=== PATIENT | female | born 1970 | race Two or more races ===

== ENCOUNTER 2024-09-25 10:20 | Outpatient (AMB) | payer MEDICAID, SELFPAY ==
[2024-09-25 10:45] VITALS: BP 124/85; PULSE 86; RESP 18; TEMP 36.8; O2SAT 96; BMI 34.7
--- NOTE | 2024-09-25 10:45 | PD.ORTHCLVIS ---
Vital signs 09/25/24 10:45 Height 1.57 m Height Method Stated Weight 85.502 kg Weight Measurement Method Standing Scale BMI 34.7 BP 124/85 H Blood Pressure Source Automatic Cuff Blood Pressure Location Right Upper Arm Position Sitting Respiration 18 Pulse 86 Pulse Source Monitor Temp 98.3 F Temp Source Temporal Artery Scan Pulse Oximetry (%) 96 Oxygen Delivery Method Room Air Med/Allergies Allergies & Medications Allergies NKA* Allergy (Uncoded 09/25/24 10:46) Medication Reconciliation albuterol sulfate 90 mcg/actuation aerosol inhaler (ProAir HFA) 2 puff inhalation Q4HR PRN SHORTNESS OF BREATH OR WHEEZE #1 inh 12/23/17 [Rx Confirmed 09/25/24] amoxicillin 500 mg capsule 500 mg PO TID #30 caps 12/23/17 [Rx Confirmed 09/25/24] cholecalciferol (vitamin D3) 25 mcg (1,000 unit) capsule 25 mcg PO QDAY 09/07/24 [History Confirmed 09/25/24] fexofenadine 180 mg tablet (Allergy Relief (fexofenadine)) 180 mg PO Q24H 09/07/24 [History Confirmed 09/25/24] lancets 23 gauge (Acti-David Lancets) 09/07/24 [History Confirmed 09/25/24] pantoprazole 40 mg tablet,delayed release 40 mg PO QDAY 09/07/24 [History Confirmed 09/25/24] semaglutide 2 mg/dose (8 mg/3 mL) subcutaneous pen injector (Ozempic) 2 mg subcut QWEEK 09/07/24 [History Confirmed 09/25/24] Subjective Visit Visit for: follow up visit, knee (LEFT) and injections Immunization / Flu Flu Vaccine in the Last 12 Months: Yes Flu Vaccine Exclusion Criteria: Already Received History of Present Illness Chief complaint: Bilateral knee pain Patient is a pleasant 54 female with bilateral knee pain with left greater than right. The pain has been ongoing for at least 3 years. She has had over 10 injections. She tried anti-inflammatories. Injections last for about 3 months. The injections are staged as she has diabetes Pain Pain level (0-10): 6 Pain duration: CONSTANT Pain location: inside (medial) and outside (lateral) Pain quality: sharp, dull and aching Pain timing: night and increases with activity Associated signs & symptoms: weakness Ambulatory data Ambulatory device: none Treatments Improvement with previous injections: No Improvement with PT: No Improvement with NSAIDS: no Review of Systems Review of Systems: All systems negative unless otherwise noted in HPI. Exam Exam Patient is in no acute distress and is cooperative with the examination today. Breathing is nonlabored. In no respiratory distress. Bilateral extremities were evaluated and demonstrates sensation intact to light touch. Palpable pedal pulses are present. No significant edema is present. Bilateral hips were examined. The patient has no pain with log roll of the hips. Internal rotation to 30 degrees and external rotation to 30 degrees is painless. Negative FADIR. The left knee was examined. The left knee is in [varus] alignment. Range of motion from [0-115] degrees. Knee is stable to varus and valgus as well as AP translation with <5mm. Patient has a [negative] McMurrays. There is [no] pain with patellofemoral compression and [no] crepitus noted. The knee is [tender] to palpation [medially]. The right knee was also examined. The right knee is in [varus] alignment. Range of motion from [0-120] degrees. Knee is stable to varus and valgus as well as AP translation with <5mm. Patient has a [negative] McMurrays. There is [no] pain with patellofemoral compression and [no] crepitus noted. The knee is [tender] to palpation [medially]. X-rays demonstrate bilateral joint space narrowing medially and varus deformity. Assessment and Plan Problem List (1) Arthritis of both knees: Status: Acute Plan: Patient is a pleasant 54-year-old female with bilateral knee pain and bilateral knee arthritis. SShe would like a right knee injection today We discussed that this is reasonable. We also discussed surgery in great detail. Recommend knee cortisone injection as patient would like to proceed with conservative treatment at this time. The risks and benefits of the procedure were reviewed with the patient and patient gave verbal consent to continue with the procedure. Procedure: performed by Dr. Bhatia Using sterile technique the left knee was thoroughly prepped with alcohol, and approximately 1 cc of Kenalog 40 mg/mL and 4 cc of 1% lidocaine was injected without resistance into the medial tibial femoral joint space. The patient tolerated the procedure. Office Procedures GNS Level of Care Nursing/Assessment Patient Status: Established Patient Nursing Assessment/Reassesment: Medication Reconciliation, Update PMH in EMR and Vital Signs Coordination of Care: Complex Care and Chronic Disease 1-5, Education Complex Pt/Fam, Consent,records obtained, informed consent, 1 Ins Authorization, Results/Orders obtained and Staff clarify orders Special Needs: Language special needs Established Patient Charge Established Patient Point Assignment: 110 Established Patient Point Charge: EP Level 3 (80-115) Surgical Proc/IM SQ injection Major Surgical Procedure: Yes (LEFT KNEE INJECTION) Past Medical History Past Medical History Have you ever been diagnosed with any of the following: Respiratory Problems Smoking: No Smoking Exposure: No Endocrine Problems Diabetes Mellitus Type 1: Yes
== END 2024-09-25 11:01 | disposition home or self-care (01) ==
LOC: HODSRG 10:20
PROVIDERS: PCP Physician Assistant Medical; Referring Provider Physician Assistant Medical; Supervising Provider Orthopaedic Surgery Adult Reconstructive Orthopaedic Surgery; Visit Provider Orthopaedic Surgery Adult Reconstructive Orthopaedic Surgery
DX: M17.0 Bilateral primary osteoarthritis of knee (principal); M25.562 Pain in left knee; M25.561 Pain in right knee; E11.9 Type 2 diabetes mellitus without complications
CPT/HCPCS: 20610; 99213; J3301; J3490; G0463

== ENCOUNTER 2024-12-14 09:14 | Outpatient (AMB) | payer MEDICAID, SELFPAY ==
--- NOTE | 2024-12-14 09:58 | PD.ORTHCLVIS ---
Vital signs 12/14/24 10:00 Height 1.57 m Height Method Stated Weight 88.11 kg Weight Measurement Method Standing Scale BMI 35.7 BP 113/77 Blood Pressure Source Automatic Cuff Blood Pressure Location Left Upper Arm Position Sitting Respiration 18 Pulse 91 Pulse Source Monitor Temp 97.3 F Temp Source Temporal Artery Scan Pulse Oximetry (%) 97 Oxygen Delivery Method Room Air Med/Allergies Allergies & Medications Allergies NKA* Allergy (Uncoded 12/14/24 10:00) Medication Reconciliation albuterol sulfate 90 mcg/actuation aerosol inhaler (ProAir HFA) 2 puff inhalation Q4HR PRN SHORTNESS OF BREATH OR WHEEZE #1 inh 12/23/17 [Rx Confirmed 12/14/24] amoxicillin 500 mg capsule 500 mg PO TID #30 caps 12/23/17 [Rx Confirmed 12/14/24] cholecalciferol (vitamin D3) 25 mcg (1,000 unit) capsule 25 mcg PO QDAY 09/07/24 [History Confirmed 12/14/24] fexofenadine 180 mg tablet (Allergy Relief (fexofenadine)) 180 mg PO Q24H 09/07/24 [History Confirmed 12/14/24] lancets 23 gauge (Acti-David Lancets) 09/07/24 [History Confirmed 12/14/24] pantoprazole 40 mg tablet,delayed release 40 mg PO QDAY 09/07/24 [History Confirmed 12/14/24] semaglutide 2 mg/dose (8 mg/3 mL) subcutaneous pen injector (Ozempic) 2 mg subcut QWEEK 09/07/24 [History Confirmed 12/14/24] Exam Exam Patient is in no acute distress and is cooperative with the examination today. Breathing is nonlabored. In no respiratory distress. Bilateral extremities were evaluated and demonstrates sensation intact to light touch. Palpable pedal pulses are present. No significant edema is present. Bilateral hips were examined. The patient has no pain with log roll of the hips. Internal rotation to 30 degrees and external rotation to 30 degrees is painless. Negative FADIR. The left knee was examined. The left knee is in [varus] alignment. Range of motion from [0-115] degrees. Knee is stable to varus and valgus as well as AP translation with <5mm. Patient has a [negative] McMurrays. There is [no] pain with patellofemoral compression and [no] crepitus noted. The knee is [tender] to palpation [medially]. The right knee was also examined. The right knee is in [varus] alignment. Range of motion from [0-120] degrees. Knee is stable to varus and valgus as well as AP translation with <5mm. Patient has a [negative] McMurrays. There is [no] pain with patellofemoral compression and [no] crepitus noted. The knee is [tender] to palpation [medially]. X-rays demonstrate bilateral joint space narrowing medially and varus deformity. Assessment and Plan Problem List (1) Arthritis of both knees: Status: Acute Plan: Patient is a pleasant 54-year-old female with bilateral knee pain and bilateral knee arthritis. She would like a right knee injection today We discussed that this is reasonable. We also discussed surgery in great detail. Recommend knee cortisone injection as patient would like to proceed with conservative treatment at this time. The risks and benefits of the procedure were reviewed with the patient and patient gave verbal consent to continue with the procedure. Procedure: performed by Dr. Bhatia Using sterile technique the Right knee was thoroughly prepped with alcohol, and approximately 1 cc of Kenalog 40 mg/mL and 4 cc of 1% lidocaine was injected without resistance into the medial tibial femoral joint space. The patient tolerated the procedure. Office Procedures GNS Level of Care Nursing/Assessment Patient Status: Established Patient Nursing Assessment/Reassesment: Medication Reconciliation, Update PMH in EMR and Vital Signs Coordination of Care: Complex Care and Chronic Disease 1-5, Education Complex Pt/Fam, Consent,records obtained, informed consent, Results/Orders obtained and Staff clarify orders Special Needs: Language special needs Established Patient Charge Established Patient Point Assignment: 95 Established Patient Point Charge: EP Level 3 (80-115) Surgical Proc/IM SQ injection Major Surgical Procedure: Yes (RIGHT KNEE INJECTION) Medication Given Medication Given Medication Given: Yes Documented Dose Given: 4 Route: Infiitration Medication Given Medication Given Medication Given: Yes Documented Dose Given: 1 Route: Infiitration Office Meds Xylocaine 10 mg/mL (1 %) injection solution Performing Provider: Aj Bhatia MD Performing Location: [facility] Administered by: Aj Bhatia MD on 12/14/24 10:27 Dose Route Admin Location Dispensed Lot Number Expiration Date [facility] Asset Protection Agent 20 mL Infiltration 20 mL [id number] 07/27/27 87414-888-89 [facility] triamcinolone acetonide 40 mg/mL suspension for injection Performing Provider: Aj Bhatia MD Performing Location: [facility] Administered by: Aj Bhatia MD on 12/14/24 10:27 Dose Route Admin Location Dispensed Lot Number Expiration Date [facility] Asset Protection Agent 40 mg Infiltration KNEE 1 mL [id number] 04/26/26 [id number] [employer] [facility] [place] Intake Visit Data Collection New Patient or Established: Established Patient (seen at [facility] within 3 years) Reason for Visit:: RIGHT KNEE INJECTION Seen by Clinical Staff ONLY (RN/MA): No Baggage Inspector Required: Yes PCP or OBGYN visit in last 3 months: Yes Hx Now: No Do You Feel Safe at Home: Yes Authorities Contacted: N/A Questionairres Past Medical History Past Medical History Have you ever been diagnosed with any of the following: Respiratory Problems Smoking: No Smoking Exposure: No Endocrine Problems Diabetes Mellitus Type 1: Yes Subjective Visit Visit for: follow up visit, knee and injections Immunization / Flu Flu Vaccine in the Last 12 Months: No Flu Vaccine Exclusion Criteria: No Exclusion Criteria History of Present Illness Chief complaint: Right knee pain Patient is a 54-year-old female whose been doing well with the injections. We will give her an injection today. We are alternating injections as she has diabetes Pain Pain level (0-10): 10 Pain duration: ALL DAY Pain location: inside (medial), outside (lateral), anterior and posterior Pain quality: sharp Pain timing: increases with activity and stairs Associated signs & symptoms: weakness Ambulatory data Ambulatory device: none Treatments Improvement with previous injections: No Improvement with PT: No Improvement with NSAIDS: no Review of Systems Review of Systems: All systems negative unless otherwise noted in HPI.
[2024-12-14 10:00] VITALS: BP 113/77; PULSE 91; RESP 18; TEMP 36.3; O2SAT 97; BMI 35.7
== END 2024-12-14 10:24 | disposition home or self-care (01) ==
PROVIDERS: PCP Physician Assistant Medical; Referring Provider Physician Assistant Medical; Supervising Provider Orthopaedic Surgery Adult Reconstructive Orthopaedic Surgery; Visit Provider Orthopaedic Surgery Adult Reconstructive Orthopaedic Surgery
DX: M17.0 Bilateral primary osteoarthritis of knee (principal); M25.562 Pain in left knee; M25.561 Pain in right knee; E11.9 Type 2 diabetes mellitus without complications
CPT/HCPCS: 20610; 99213; J3301; J3490; G0463

== ENCOUNTER 2024-12-25 10:05 | Outpatient (AMB) | payer MEDICAID, SELFPAY ==
[2024-12-25 10:24] VITALS: BP 138/80; PULSE 98; RESP 18; TEMP 36.3; O2SAT 98; BMI 35.4
--- NOTE | 2024-12-25 10:24 | PD.ORTHCLVIS ---
Vital signs 12/25/24 10:24 Height 1.57 m Height Method Stated Weight 87.175 kg Weight Measurement Method Standing Scale BMI 35.4 BP 138/80 H Blood Pressure Source Automatic Cuff Blood Pressure Location Right Upper Arm Position Sitting Respiration 18 Pulse 98 Pulse Source Monitor Temp 97.3 F Temp Source Temporal Artery Scan Pulse Oximetry (%) 98 Oxygen Delivery Method Room Air Med/Allergies Allergies & Medications Allergies NKA* Allergy (Uncoded 12/25/24 10:26) Medication Reconciliation albuterol sulfate 90 mcg/actuation aerosol inhaler (ProAir HFA) 2 puff inhalation Q4HR PRN SHORTNESS OF BREATH OR WHEEZE #1 inh 12/23/17 [Rx Confirmed 12/25/24] amoxicillin 500 mg capsule 500 mg PO TID #30 caps 12/23/17 [Rx Confirmed 12/25/24] cholecalciferol (vitamin D3) 25 mcg (1,000 unit) capsule 25 mcg PO QDAY 09/07/24 [History Confirmed 12/25/24] fexofenadine 180 mg tablet (Allergy Relief (fexofenadine)) 180 mg PO Q24H 09/07/24 [History Confirmed 12/25/24] lancets 23 gauge (Acti-David Lancets) 09/07/24 [History Confirmed 12/25/24] pantoprazole 40 mg tablet,delayed release 40 mg PO QDAY 09/07/24 [History Confirmed 12/25/24] semaglutide 2 mg/dose (8 mg/3 mL) subcutaneous pen injector (Ozempic) 2 mg subcut QWEEK 09/07/24 [History Confirmed 12/25/24] Exam Exam Patient is in no acute distress and is cooperative with the examination today. Breathing is nonlabored. In no respiratory distress. Bilateral extremities were evaluated and demonstrates sensation intact to light touch. Palpable pedal pulses are present. No significant edema is present. Bilateral hips were examined. The patient has no pain with log roll of the hips. Internal rotation to 30 degrees and external rotation to 30 degrees is painless. Negative FADIR. The left knee was examined. The left knee is in [varus] alignment. Range of motion from [0-115] degrees. Knee is stable to varus and valgus as well as AP translation with <5mm. Patient has a [negative] McMurrays. There is [no] pain with patellofemoral compression and [no] crepitus noted. The knee is [tender] to palpation [medially]. The right knee was also examined. The right knee is in [varus] alignment. Range of motion from [0-120] degrees. Knee is stable to varus and valgus as well as AP translation with <5mm. Patient has a [negative] McMurrays. There is [no] pain with patellofemoral compression and [no] crepitus noted. The knee is [tender] to palpation [medially]. X-rays demonstrate bilateral joint space narrowing medially and varus deformity. Assessment and Plan Problem List (1) Arthritis of both knees: Status: Acute Plan: Patient is a pleasant 54-year-old female with bilateral knee pain and bilateral knee arthritis. She would like a left knee injection today We discussed that this is reasonable. We also discussed surgery in great detail. Recommend knee cortisone injection as patient would like to proceed with conservative treatment at this time. The risks and benefits of the procedure were reviewed with the patient and patient gave verbal consent to continue with the procedure. Procedure: performed by Dr. Bhatia Using sterile technique the left knee was thoroughly prepped with alcohol, and approximately 1 cc of Kenalog 40 mg/mL and 4 cc of 1% lidocaine was injected without resistance into the medial tibial femoral joint space. The patient tolerated the procedure. Office Procedures GNS Level of Care Nursing/Assessment Patient Status: Established Patient Nursing Assessment/Reassesment: Medication Reconciliation, Update PMH in EMR and Vital Signs Coordination of Care: Complex Care and Chronic Disease 1-5, Education Complex Pt/Fam, Consent,records obtained, informed consent, Results/Orders obtained and Staff clarify orders Special Needs: Language special needs Established Patient Charge Established Patient Point Assignment: 95 Established Patient Point Charge: EP Level 3 (80-115) Surgical Proc/IM SQ injection Major Surgical Procedure: Yes (KNEE INJECTION) Medication Given Medication Given Medication Given: Yes Documented Dose Given: 4 Route: Infiitration Medication Given Medication Given Medication Given: Yes Documented Dose Given: 1 Route: Infiitration Office Meds Xylocaine 10 mg/mL (1 %) injection solution Performing Provider: Aj Bhatia MD Performing Location: [facility] Administered by: Aj Bhatia MD on 12/25/24 10:52 Dose Route Admin Location Dispensed Lot Number Expiration Date [facility] Orthopedic Shoe Fitter 20 mL Infiltration 20 mL [id number] 03/27/28 99580-047-25 [facility] triamcinolone acetonide 40 mg/mL suspension for injection Performing Provider: Aj Bhatia MD Performing Location: [facility] Administered by: Aj Bhatia MD on 12/25/24 10:52 Dose Route Admin Location Dispensed Lot Number Expiration Date [facility] Orthopedic Shoe Fitter 40 mg Infiltration KNEE 1 mL [id number] 04/26/26 [id number] TEV[facility] PARENTERAL [place] Intake Visit Data Collection New Patient or Established: Established Patient (seen at [facility] within 3 years) Reason for Visit:: KNEE INJECTION Seen by Clinical Staff ONLY (RN/MA): No Verbal consent obtained for Telemed visit?: No Filing Writer Required: Yes PCP or OBGYN visit in last 3 months: Yes Hx Now: No Do You Feel Safe at Home: Yes Authorities Contacted: N/A Questionairres Past Medical History Past Medical History Have you ever been diagnosed with any of the following: Respiratory Problems Smoking: No Smoking Exposure: No Endocrine Problems Diabetes Mellitus Type 1: Yes Subjective Visit Visit for: follow up visit, knee and injections Immunization / Flu Flu Vaccine in the Last 12 Months: No Flu Vaccine Exclusion Criteria: No Exclusion Criteria History of Present Illness Chief complaint: KNEE INJECTION Patient is a 54-year-old female whose been doing well with the injections. We will give her an injection today. We are alternating injections as she has diabetes. She did well with the right knee injection and is here for the left today Pain Pain level (0-10): 4 Pain duration: ALL DAY Pain location: inside (medial), outside (lateral), anterior and posterior Pain quality: sharp, dull and aching Pain timing: increases with activity Associated signs & symptoms: weakness Ambulatory data Ambulatory device: none Treatments Improvement with previous injections: No Improvement with PT: No Improvement with NSAIDS: no Review of Systems Review of Systems: All systems negative unless otherwise noted in HPI.
== END 2024-12-25 10:54 | disposition home or self-care (01) ==
LOC: HODSRG 10:05
PROVIDERS: PCP Physician Assistant Medical; Referring Provider Physician Assistant Medical; Supervising Provider Orthopaedic Surgery Adult Reconstructive Orthopaedic Surgery; Visit Provider Orthopaedic Surgery Adult Reconstructive Orthopaedic Surgery
DX: M17.0 Bilateral primary osteoarthritis of knee (principal); M25.562 Pain in left knee; M25.561 Pain in right knee; E10.9 Type 1 diabetes mellitus without complications
CPT/HCPCS: 20610; 99213; J3301; J3490; G0463

== ENCOUNTER 2025-03-14 10:43 | Outpatient (AMB) | payer MEDICAID, SELFPAY ==
--- NOTE | 2025-03-14 10:56 | ORTHONT_ITS ---
Vital signs 03/14/25 10:57 Height 1.57 m Height Method Stated Weight 87.288 kg Weight Measurement Method Standing Scale BMI 35.4 BP 126/84 Blood Pressure Source Automatic Cuff Blood Pressure Location Right Upper Arm Position Sitting Respiration 17 Pulse 98 Pulse Source Monitor Temp 98.4 F Temp Source Temporal Artery Scan Pulse Oximetry (%) 98 Oxygen Delivery Method Room Air Med/Allergies Allergies & Medications Allergies NKA* Allergy (Uncoded 03/14/25 10:58) Medication Reconciliation albuterol sulfate 90 mcg/actuation aerosol inhaler (ProAir HFA) 2 puff inhalation Q4HR PRN SHORTNESS OF BREATH OR WHEEZE #1 inh 12/23/17 [Rx Confirmed 03/14/25] amoxicillin 500 mg capsule 500 mg PO TID #30 caps 12/23/17 [Rx Confirmed 03/14/25] cholecalciferol (vitamin D3) 25 mcg (1,000 unit) capsule 25 mcg PO QDAY 09/07/24 [History Confirmed 03/14/25] fexofenadine 180 mg tablet (Allergy Relief (fexofenadine)) 180 mg PO Q24H 09/07/24 [History Confirmed 03/14/25] lancets 23 gauge (Acti-David Lancets) 09/07/24 [History Confirmed 03/14/25] pantoprazole 40 mg tablet,delayed release 40 mg PO QDAY 09/07/24 [History Confirmed 03/14/25] semaglutide 2 mg/dose (8 mg/3 mL) subcutaneous pen injector (Ozempic) 2 mg subcut QWEEK 09/07/24 [History Confirmed 03/14/25] Exam Exam Patient is in no acute distress and is cooperative with the examination today. Breathing is nonlabored. In no respiratory distress. Bilateral extremities were evaluated and demonstrates sensation intact to light touch. Palpable pedal pulses are present. No significant edema is present. Bilateral hips were examined. The patient has no pain with log roll of the hips. Internal rotation to 30 degrees and external rotation to 30 degrees is painless. Negative FADIR. The left knee was examined. The left knee is in [varus] alignment. Range of motion from [0-115] degrees. Knee is stable to varus and valgus as well as AP translation with <5mm. Patient has a [negative] McMurrays. There is [no] pain with patellofemoral compression and [no] crepitus noted. The knee is [tender] to palpation [medially]. The right knee was also examined. The right knee is in [varus] alignment. Range of motion from [0-120] degrees. Knee is stable to varus and valgus as well as AP translation with <5mm. Patient has a [negative] McMurrays. There is [no] pain with patellofemoral compression and [no] crepitus noted. The knee is [tender] to palpation [medially]. X-rays demonstrate bilateral joint space narrowing medially and varus deformity. Assessment and Plan Problem List (1) Arthritis of both knees: Status: Acute Plan: Patient is a pleasant 54-year-old female with bilateral knee pain and bilateral knee arthritis. She would like a right knee injection today as it has been working for over 3 months Recommend knee cortisone injection as patient would like to proceed with conservative treatment at this time. The risks and benefits of the procedure were reviewed with the patient and patient gave verbal consent to continue with the procedure. Procedure: performed by Dr. Bhatia Using sterile technique the Right knee was thoroughly prepped with alcohol, and approximately 1 cc of Kenalog 40 mg/mL and 4 cc of 1% lidocaine was injected without resistance into the medial tibial femoral joint space. The patient tolerated the procedure. Office Procedures GNS Level of Care Nursing/Assessment Patient Status: Established Patient Nursing Assessment/Reassesment: Medication Reconciliation, Update PMH in EMR and Vital Signs Coordination of Care: Complex Care and Chronic Disease 1-5, Education Complex Pt/Fam, Consent,records obtained, informed consent, Results/Orders obtained and Staff clarify orders Special Needs: Language special needs (ALBANIAN ) Established Patient Charge Established Patient Point Assignment: 95 Established Patient Point Charge: EP Level 3 (80-115) Surgical Proc/IM SQ injection Major Surgical Procedure: Yes (KNEE INJECTION) Medication Given Medication Given Medication Given: Yes Documented Dose Given: 4 Route: Infiitration Medication Given Medication Given Medication Given: Yes Documented Dose Given: 1 Route: Infiitration Office Meds Xylocaine 10 mg/mL (1 %) injection solution Performing Provider: Aj Bhatia MD Performing Location: [facility] Administered by: Aj Bhatia MD on 03/14/25 12:07 Dose Route Admin Location Dispensed Lot Number Expiration Date [facility] Nursing Home Manager 20 mL Infiltration 20 mL [id number] 05/27/28 17314-555-13 SOU[employer]ICIA triamcinolone acetonide 40 mg/mL suspension for injection Performing Provider: Aj Bhatia MD Performing Location: [facility] Administered by: Aj Bhatia MD on 03/14/25 12:07 Dose Route Admin Location Dispensed Lot Number Expiration Date [facility] Nursing Home Manager 40 mg intra-articular KNEE 1 mL [id number] 09/26/26 2843-6294-25 [employer] [place] PARENTERAL MA Intake Visit Data Collection New Patient or Established: Established Patient (seen at [facility] within 3 years) Reason for Visit:: RT KNEE INJECTION Seen by Clinical Staff ONLY (RN/MA): No 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 PCP or OBGYN visit in last 3 months: Yes Hx Now: No Do You Feel Safe at Home: Yes Authorities Contacted: N/A Questionairres Past Medical History Past Medical History Have you ever been diagnosed with any of the following: Respiratory Problems Smoking: No Smoking Exposure: No Endocrine Problems Diabetes Mellitus Type 1: Yes Subjective Visit Visit for: follow up visit and knee (RIGHT KNEE ) Immunization / Flu Flu Vaccine in the Last 12 Months: Yes Flu Vaccine Exclusion Criteria: Already Received History of Present Illness Chief complaint: KNEE INJECTION Patient is a 54-year-old female whose been doing well with the injections. We will give her an injection today. We are alternating injections as she has diabetes. She did well with the right knee injection and is here for the Right knee injection today. They are waiting for over 3 months. We are staggering the injections because of her diabetes Personal History Red flag PMH: none Pain Pain level (0-10): 9 Pain duration: 1 WEEK Pain location: anterior Pain quality: aching and tingling Pain timing: increases with activity Associated signs & symptoms: numbness Ambulatory data Ambulatory device: none Walking distance (minutes): 1 (HOUR) Treatments Number of previous injections: 1 Improvement with previous injections: Yes Number of Physical Therapy sessions: 0 Improvement with PT: No Improvement with NSAIDS: n/a Review of Systems Review of Systems: All systems negative unless otherwise noted in HPI.
[2025-03-14 10:57] VITALS: BP 126/84; PULSE 98; RESP 17; TEMP 36.9; O2SAT 98; BMI 35.4
== END 2025-03-14 11:23 | disposition home or self-care (01) ==
LOC: HODSRG 10:43
PROVIDERS: PCP Physician Assistant Medical; Referring Provider Physician Assistant Medical; Supervising Provider Orthopaedic Surgery Adult Reconstructive Orthopaedic Surgery; Visit Provider Orthopaedic Surgery Adult Reconstructive Orthopaedic Surgery
DX: M17.0 Bilateral primary osteoarthritis of knee (principal); M25.562 Pain in left knee; M25.561 Pain in right knee; E10.9 Type 1 diabetes mellitus without complications
CPT/HCPCS: 20610; 99213; J3301; J3490; G0463

== ENCOUNTER 2025-04-11 11:22 | Outpatient (AMB) | payer MEDICAID, SELFPAY ==
--- NOTE | 2025-04-11 11:26 | PD.ORTHCLVIS ---
Vital signs 04/11/25 11:30 Height 1.57 m Height Method Stated Weight 87.203 kg Weight Measurement Method Standing Scale BMI 35.4 BP 127/83 Blood Pressure Source Automatic Cuff Blood Pressure Location Right Upper Arm Position Sitting Respiration 17 Pulse 99 Pulse Source Monitor Temp 98.4 F Temp Source Temporal Artery Scan Pulse Oximetry (%) 97 Oxygen Delivery Method Room Air Med/Allergies Allergies & Medications Allergies NKA* Allergy (Uncoded 04/11/25 11:32) Medication Reconciliation albuterol sulfate 90 mcg/actuation aerosol inhaler (ProAir HFA) 2 puff inhalation Q4HR PRN SHORTNESS OF BREATH OR WHEEZE #1 inh 12/23/17 [Rx Confirmed 04/11/25] amoxicillin 500 mg capsule 500 mg PO TID #30 caps 12/23/17 [Rx Confirmed 04/11/25] cholecalciferol (vitamin D3) 25 mcg (1,000 unit) capsule 25 mcg PO QDAY 09/07/24 [History Confirmed 04/11/25] fexofenadine 180 mg tablet (Allergy Relief (fexofenadine)) 180 mg PO Q24H 09/07/24 [History Confirmed 04/11/25] lancets 23 gauge (Acti-David Lancets) 09/07/24 [History Confirmed 04/11/25] pantoprazole 40 mg tablet,delayed release 40 mg PO QDAY 09/07/24 [History Confirmed 04/11/25] semaglutide 2 mg/dose (8 mg/3 mL) subcutaneous pen injector (Ozempic) 2 mg subcut QWEEK 09/07/24 [History Confirmed 04/11/25] Exam Exam Patient is in no acute distress and is cooperative with the examination today. Breathing is nonlabored. In no respiratory distress. Bilateral extremities were evaluated and demonstrates sensation intact to light touch. Palpable pedal pulses are present. No significant edema is present. Bilateral hips were examined. The patient has no pain with log roll of the hips. Internal rotation to 30 degrees and external rotation to 30 degrees is painless. Negative FADIR. The left knee was examined. The left knee is in [varus] alignment. Range of motion from [0-115] degrees. Knee is stable to varus and valgus as well as AP translation with <5mm. Patient has a [negative] McMurrays. There is [no] pain with patellofemoral compression and [no] crepitus noted. The knee is [tender] to palpation [medially]. The right knee was also examined. The right knee is in [varus] alignment. Range of motion from [0-120] degrees. Knee is stable to varus and valgus as well as AP translation with <5mm. Patient has a [negative] McMurrays. There is [no] pain with patellofemoral compression and [no] crepitus noted. The knee is [tender] to palpation [medially]. X-rays demonstrate bilateral joint space narrowing medially and varus deformity. Assessment and Plan Problem List (1) Arthritis of both knees: Status: Acute Plan: Patient is a pleasant 54-year-old female with bilateral knee pain and bilateral knee arthritis. She would like a left knee injection today as it has been over 3 months and the last one has worn off Recommend knee cortisone injection as patient would like to proceed with conservative treatment at this time. The risks and benefits of the procedure were reviewed with the patient and patient gave verbal consent to continue with the procedure. Procedure: performed by Dr. Bhatia Using sterile technique the left knee was thoroughly prepped with alcohol, and approximately 1 cc of Kenalog 40 mg/mL and 4 cc of 1% lidocaine was injected without resistance into the medial tibial femoral joint space. The patient tolerated the procedure. Office Procedures GNS Level of Care Nursing/Assessment Patient Status: Established Patient Nursing Assessment/Reassesment: Medication Reconciliation, Update PMH in EMR and Vital Signs Coordination of Care: Complex Care and Chronic Disease 1-5, Education Complex Pt/Fam, Consent,records obtained, informed consent, Results/Orders obtained and Staff clarify orders Special Needs: Language special needs Established Patient Charge Established Patient Point Assignment: 95 Established Patient Point Charge: EP Level 3 (80-115) Surgical Proc/IM SQ injection Major Surgical Procedure: Yes (KNEE INJECTION) Medication Given Medication Given Medication Given: Yes Documented Dose Given: 4 Route: Infiitration Medication Given Medication Given Medication Given: Yes Documented Dose Given: 1 Route: Infiitration Office Meds Xylocaine 10 mg/mL (1 %) injection solution Performing Provider: Aj Bhatia MD Performing Location: [facility] Administered by: Aj Bhatia MD on 04/11/25 11:32 Dose Route Admin Location Dispensed Lot Number Expiration Date [employer] 20 mL Infiltration 20 mL [id number] 07/27/28 53678-516-26 [employer] triamcinolone acetonide 40 mg/mL suspension for injection Performing Provider: Aj Bhatia MD Performing Location: [facility] Administered by: Aj Bhatia MD on 04/11/25 11:32 Dose Route Admin Location Dispensed Lot Number Expiration Date [facility] [employer] Teacher 40 mg intra-articular KNEE 1 mL [id number] 11/26/26 4619-6994-96 [employer]EV[employer] PARENTERAL MA Intake Visit Data Collection New Patient or Established: Established Patient (seen at [facility] within 3 years) Reason for Visit:: 3 MNTH FU/ LT KNEE INJECTION Seen by Clinical Staff ONLY (RN/MA): No 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: 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 PCP or OBGYN visit in last 3 months: Yes Hx Now: No Do You Feel Safe at Home: Yes Authorities Contacted: N/A Questionairres Past Medical History Past Medical History Have you ever been diagnosed with any of the following: Respiratory Problems Smoking: No Smoking Exposure: No Endocrine Problems Diabetes Mellitus Type 1: Yes Subjective Visit Visit for: follow up visit and knee (RIGHT KNEE ) Immunization / Flu Flu Vaccine in the Last 12 Months: Yes Flu Vaccine Exclusion Criteria: Already Received History of Present Illness Chief complaint: KNEE INJECTION Patient is a 54-year-old female whose been doing well with the injections. We will give her an injection today. We are alternating injections as she has diabetes. She did well with the Prior left knee injection 3 months ago and would like another 1 today. We are staggering the injection as she does have diabetes. She would like to get surgery in a year or so Personal History Red flag PMH: none Pain Pain level (0-10): 9 Pain duration: 1 WEEK Pain location: anterior Pain quality: aching and tingling Pain timing: increases with activity Associated signs & symptoms: numbness Ambulatory data Ambulatory device: none Walking distance (minutes): 1 (HOUR) Treatments Number of previous injections: 1 Improvement with previous injections: Yes Number of Physical Therapy sessions: 0 Improvement with PT: No Improvement with NSAIDS: n/a Review of Systems Review of Systems: All systems negative unless otherwise noted in HPI.
[2025-04-11 11:30] VITALS: BP 127/83; PULSE 99; RESP 17; TEMP 36.9; O2SAT 97; BMI 35.4
== END 2025-04-11 11:34 | disposition home or self-care (01) ==
LOC: HODSRG 11:22
PROVIDERS: PCP Physician Assistant Medical; Referring Provider Physician Assistant Medical; Supervising Provider Orthopaedic Surgery Adult Reconstructive Orthopaedic Surgery; Visit Provider Orthopaedic Surgery Adult Reconstructive Orthopaedic Surgery
DX: M17.0 Bilateral primary osteoarthritis of knee (principal); M25.562 Pain in left knee; M25.561 Pain in right knee; E10.9 Type 1 diabetes mellitus without complications
CPT/HCPCS: 20610; 99213; J3301; J3490; G0463

== ENCOUNTER 2025-06-21 09:49 | Outpatient (AMB) | payer MEDICAID, SELFPAY ==
--- NOTE | 2025-06-21 10:10 | ORTHONT_ITS ---
Vital signs 06/21/25 10:16 Height 1.57 m Height Method Measured Weight 90.265 kg Weight Measurement Method Standing Scale BMI 36.6 BP 119/79 Blood Pressure Source Automatic Cuff Blood Pressure Location Left Upper Arm Position Sitting Respiration 16 Pulse 97 Pulse Source Monitor Temp 98.3 F Temp Source Temporal Artery Scan Pulse Oximetry (%) 96 Oxygen Delivery Method Room Air Med/Allergies Allergies & Medications Allergies NKA* Allergy (Uncoded 06/21/25 10:17) Medication Reconciliation albuterol sulfate 90 mcg/actuation aerosol inhaler (ProAir HFA) 2 puff inhalation Q4HR PRN SHORTNESS OF BREATH OR WHEEZE #1 inh 12/23/17 [Rx Confirmed 06/21/25] amoxicillin 500 mg capsule 500 mg PO TID #30 caps 12/23/17 [Rx Confirmed 06/21/25] cholecalciferol (vitamin D3) 25 mcg (1,000 unit) capsule 25 mcg PO QDAY 09/07/24 [History Confirmed 06/21/25] fexofenadine 180 mg tablet (Allergy Relief (fexofenadine)) 180 mg PO Q24H 09/07/24 [History Confirmed 06/21/25] lancets 23 gauge (Acti-David Lancets) 09/07/24 [History Confirmed 06/21/25] pantoprazole 40 mg tablet,delayed release 40 mg PO QDAY 09/07/24 [History Confirmed 06/21/25] semaglutide 2 mg/dose (8 mg/3 mL) subcutaneous pen injector (Ozempic) 2 mg subcut QWEEK 09/07/24 [History Confirmed 06/21/25] Exam Exam Patient is in no acute distress and is cooperative with the examination today. Breathing is nonlabored. In no respiratory distress. Bilateral extremities were evaluated and demonstrates sensation intact to light touch. Palpable pedal pulses are present. No significant edema is present. Bilateral hips were examined. The patient has no pain with log roll of the hips. Internal rotation to 30 degrees and external rotation to 30 degrees is painless. Negative FADIR. The left knee was examined. The left knee is in [varus] alignment. Range of motion from [0-115] degrees. Knee is stable to varus and valgus as well as AP translation with <5mm. Patient has a [negative] McMurrays. There is [no] pain with patellofemoral compression and [no] crepitus noted. The knee is [tender] to palpation [medially]. The right knee was also examined. The right knee is in [varus] alignment. Range of motion from [0-120] degrees. Knee is stable to varus and valgus as well as AP translation with <5mm. Patient has a [negative] McMurrays. There is [no] pain with patellofemoral compression and [no] crepitus noted. The knee is [tender] to palpation [medially]. X-rays demonstrate bilateral joint space narrowing medially and varus deformity. Assessment and Plan Problem List (1) Arthritis of both knees: Status: Acute Plan: Patient is a pleasant 54-year-old female with bilateral knee pain and bilateral knee arthritis. She would like a left knee injection today as it has been over 3 months and the last one has worn off Recommend knee cortisone injection as patient would like to proceed with conservative treatment at this time. The risks and benefits of the procedure were reviewed with the patient and patient gave verbal consent to continue with the procedure. Procedure: performed by Dr. Bhatia Using sterile technique the Right knee was thoroughly prepped with alcohol, and approximately 1 cc of Depo-Medrol 80mg/mL and 4 cc of 0.2% ropivacaine was injected without resistance into the medial tibial femoral joint space. The patient tolerated the procedure. Office Procedures GNS Level of Care Nursing/Assessment Patient Status: Established Patient Nursing Assessment/Reassesment: Medication Reconciliation, Update PMH in EMR and Vital Signs Coordination of Care: Complex Care and Chronic Disease 1-5, Education Complex Pt/Fam, Consent,records obtained, informed consent, Results/Orders obtained and Staff clarify orders Special Needs: Language special needs Established Patient Charge Established Patient Point Assignment: 95 Established Patient Point Charge: EP Level 3 (80-115) Surgical Proc/IM SQ injection Major Surgical Procedure: Yes (KNEE INJECTION) Medication Given Medication Given Medication Given: Yes Documented Dose Given: 1 Route: Infiitration Medication Given Medication Given Medication Given: Yes Documented Dose Given: 4 Route: Infiitration Office Meds methylprednisolone acetate 80 mg/mL suspension for injection Performing Provider: Aj Bhatia MD Performing Location: [facility] Administered by: Aj Bhatia MD on 06/21/25 11:02 Dose Route Admin Location Dispensed Lot Number Expiration Date [facility] Boarder Machine 80 mg intra-articular KNEE 1 mL [id number] 10/27/26 [address]-8 A [facility] ropivacaine (PF) 2 mg/mL (0.2 %) injection solution Performing Provider: Aj Bhatia MD Performing Location: [facility] Administered by: Aj Bhatia MD on 06/21/25 11:02 Dose Route Admin Location Dispensed Lot Number Expiration Date 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 PCP or OBGYN visit in last 3 months: Yes Hx Now: No Do You Feel Safe at Home: Yes Authorities Contacted: N/A Questionairres Past Medical History Past Medical History Have you ever been diagnosed with any of the following: Neurological Problems Cerebrovascular Accident (CVA): No Transient Ischemic Attacks (TIA): No Dementia: No Alzheimer's Disease: No Parkinson's Disease: No Brain Tumor: No Meningitis: No Seizures: No Epilepsy: No Multiple Sclerosis: No Cerebral Palsy: No Amyotrophic Lateral Sclerosis (ALS/Eliz Gehrig's): No Guillain-Hartford Syndrome: No Spina Bifida: No Paralysis: No Peripheral Neuropathy: No Cordero's Palsy: No Subdural Hematoma: No Migraine: No Head Trauma: No Spinal Cord Injury: No Traumatic Brain Injury: No Cardiology Problems Myocardial Infarction: No Cardiac Arrhythmia: No Atrial Fibrillation: No Angina: No Heart Murmur: No Coronary Artery Disease: No Atherosclerotic Heart Disease: No Peripheral Vascular Disease: No Hypercholesterolemia: No Aneurysm: No Congestive Heart Failure: No Congenital Heart Disease: No Valvular Heart Disease: No Rheumatic Fever: No Cardiomyopathy: No Edema: No Pericarditis: No Cellulitis: No Deep Vein Thrombosis: No Hypertension: No Hypotension: No Varicose Veins: No Respiratory Problems Chronic Obstructive Pulmonary Disease (COPD): No Asthma: No Bronchitis: No Emphysema: No Pneumonia: No Pulmonary Fibrosis: No Tuberculosis: No Pulmonary Embolism: No Pulmonary Edema: No Sleep Apnea: No CPAP Dependent: No Respiratory Aspiration: No Dyspnea: No Orthopnea: No Hx Cough: No Cough: No Wheezing: No Chest Deformities: No Smoking: No Smoking Cessation Counseling: No Smoking Exposure: No Tobacco Use: No Clubbing: No Exposure to Respiratory Irritants: No Intubation: No Stomache/Intestinal Problems Liver Cancer: No Hepatitis: No Cirrhosis: No Pancreatic Cancer: No Pancreatitis: No Celiac Disease: No Gall Bladder Disease: No Gastrointestinal Bleed: No Esophageal Varices: No Hunter's Esophagus: No Colitis: No Ulcerative Colitis: No Diverticulitis: No Diverticulosis: No Ulcer: No Colorectal Cancer: No Irritable Bowel: No Crohn's Disease: No Obstructive Bowel: No Hiatal Hernia: No Hemorrhoids: No Gastroesophageal Reflux Disease: No Polyps: No Obesity: No Genital/Urinary Problems Chronic Kidney Disease: No Renal Disease: No Kidney Stones: No Polycystic Kidney Disease: No Neurogenic Bladder: No Inguinal Hernia: No Dialysis: No Reproductive Problems Breast Cancer: No Endometriosis: No Fibroids: No Genital Herpes: No Gonorrhea: No Pelvic Inflammatory Disease: No Polycystic Ovarian Syndrome: No Previous Pregnancies: No Syphilis: No Uterine Prolapse: No Musculoskeletal Problems Muscular Dystrophy: No Myasthenia Gravis: No Marfan's Syndrome: No Bone Cancer: No Arthritis: No Rheumatoid Arthritis: No Osteoporosis: No Degenerative Disk Disease: No Gout: No Scoliosis: No Carpal Tunnel Syndrome: No Fibromyalgia: No Fractures: No Degenerative Joint Disease: No Osteomyelitis: No Poliovirus: No Head,Eye,Nose,Throat Problems Cataracts: No Glaucoma: No Blind: No Retinal Detachment: No Macular Degeneration: No Chronic Ear Infections: No Deafness: No Eye Prosthesis: No Endocrine Problems Diabetes Mellitus Type 1: Yes Diabetes Mellitus Type 2: No Hypoglycemia: No García's Syndrome: No Boyle's Disease: No Hyperthyroidism: No Hypothyroidism: No Thyroid Cancer: No Parathyroid Disease: No Pituitary Disease: No Systemic Lupus Erythematosus: No Syndrome of Inappropriate Antidiuretic Hormone: No Adrenal Disease: No Graves' Disease: No Blood Problems Anemia: No Leukemia: No Hemophilia: No Thalassemia: No Sickle Cell Disease: No Clotting Problems: No Psychologic Problems Schizophrenia: No Recreational Drug Use: No Bipolar Disorder: No Depression: No Anxiety: No Behavior Problems: No Self-Mutilation: No Attention Deficit Disorder: No Attention Deficit Hyperactivity Disorder: No Depression: No Post Traumatic Stress Disorder: No Eating Disorder: No Other Problems Hospitalization: No Autoimmune Disease: No Down Syndrome: No Autism: No Developmental Delay: No Cosmetic Surgery: No Shingles: No Falls: No Blood Transfusions: No Blood Transfusion Reaction: No Anesthesia Reactions: No Organ Transplant: No Chemotherapy: No Radiation Therapy: No Hyperbaric Therapy: No MRSA: No VRSA: No Vancomycin-Resistant Enterococci: No Human Immunodeficiency Virus (HIV): No Chicken Pox: No Measles: No Mumps: No Rubella (Y[place]i Measles): No Pertussis: No Klebsiella Pneumoniae Carbapenemase Producing Bacteria: No Clostridium Difficile: No Hepatitis A: No Hepatitis B: No Hepatitis C: No Communicable Disease: No Cancer: No Cervical Cancer: No Lung Cancer: No Ovarian Cancer: No Surgical History Angioplasty: No Appendectomy: No Bariatric Surgery: No Breast Surgery: No Cancer Surgery: No Carotid Endarterectomy: No Cholecystectomy: No Colectomy: No Colostomy: No Coronary Artery Bypass Graft: No Valve Replacement: No Herniorrhaphy: No Total Hip Replacement: No Total Knee Replacement: No Hysterectomy: No Pacemaker: No Sinus Surgery: No Splenectomy: No TAHBSO-Total Abdominal Hysterectomy: No Thyroidectomy: No Ureter Stent: No Subjective Visit Visit for: follow up visit and knee Immunization / Flu Flu Vaccine in the Last 12 Months: No Flu Vaccine Exclusion Criteria: No Exclusion Criteria History of Present Illness Chief complaint: RIGHT KNEE F/U INJECTIONS Patient is a 54-year-old female whose been doing well with the injections. We will give her an injection today. We are alternating injections as she has diabetes. She did well with the Prior left knee injection 3 months ago and would like another 1 today. We are staggering the injection as she does have diabetes. She would like to get surgery in a year or so Personal History Red flag PMH: none BMI Counceling provided: Yes Pain Pain level (0-10): 9 Pain duration: 1 WEEK Pain location: inside (medial) and anterior Pain quality: aching Pain timing: increases with activity Associated signs & symptoms: none Ambulatory data Ambulatory device: none Walking distance (minutes): 1 (HOUR) Treatments Number of previous injections: 12 Improvement with previous injections: Yes Number of Physical Therapy sessions: 0 Improvement with PT: No Improvement with NSAIDS: no Review of Systems Review of Systems: All systems negative unless otherwise noted in HPI.
[2025-06-21 10:16] VITALS: BP 119/79; PULSE 97; RESP 16; TEMP 36.8; O2SAT 96; BMI 36.6
== END 2025-06-21 10:38 | disposition home or self-care (01) ==
LOC: HODSRG 09:49
PROVIDERS: PCP Physician Assistant Medical; Referring Provider Physician Assistant Medical; Supervising Provider Orthopaedic Surgery Adult Reconstructive Orthopaedic Surgery; Visit Provider Orthopaedic Surgery Adult Reconstructive Orthopaedic Surgery
DX: M17.0 Bilateral primary osteoarthritis of knee (principal); M25.562 Pain in left knee; M25.561 Pain in right knee; E10.9 Type 1 diabetes mellitus without complications
CPT/HCPCS: 20610; 99213; J1010; J2795; G0463

== ENCOUNTER 2025-07-16 10:03 | Outpatient (AMB) | payer MEDICAID, SELFPAY ==
--- NOTE | 2025-07-16 10:25 | PD.ORTHCLVIS ---
Vital signs 07/16/25 10:26 Height 1.57 m Height Method Stated Weight 88.706 kg Weight Measurement Method Standing Scale BMI 35.9 BP 118/80 Blood Pressure Source Automatic Cuff Blood Pressure Location Left Upper Arm Position Sitting Respiration 18 Pulse 93 Pulse Source Monitor Temp 97.8 F Temp Source Temporal Artery Scan Pulse Oximetry (%) 97 Oxygen Delivery Method Room Air Med/Allergies Allergies & Medications Allergies NKA* Allergy (Uncoded 06/21/25 10:17) Medication Reconciliation albuterol sulfate 90 mcg/actuation aerosol inhaler (ProAir HFA) 2 puff inhalation Q4HR PRN SHORTNESS OF BREATH OR WHEEZE #1 inh 12/23/17 [Rx Confirmed 07/16/25] amoxicillin 500 mg capsule 500 mg PO TID #30 caps 12/23/17 [Rx Confirmed 07/16/25] cholecalciferol (vitamin D3) 25 mcg (1,000 unit) capsule 25 mcg PO QDAY 09/07/24 [History Confirmed 07/16/25] fexofenadine 180 mg tablet (Allergy Relief (fexofenadine)) 180 mg PO Q24H 09/07/24 [History Confirmed 07/16/25] lancets 23 gauge (Acti-David Lancets) 09/07/24 [History Confirmed 07/16/25] pantoprazole 40 mg tablet,delayed release 40 mg PO QDAY 09/07/24 [History Confirmed 07/16/25] semaglutide 2 mg/dose (8 mg/3 mL) subcutaneous pen injector (Ozempic) 2 mg subcut QWEEK 09/07/24 [History Confirmed 07/16/25] Exam Exam Patient is in no acute distress and is cooperative with the examination today. Breathing is nonlabored. In no respiratory distress. Bilateral extremities were evaluated and demonstrates sensation intact to light touch. Palpable pedal pulses are present. No significant edema is present. Bilateral hips were examined. The patient has no pain with log roll of the hips. Internal rotation to 30 degrees and external rotation to 30 degrees is painless. Negative FADIR. The left knee was examined. The left knee is in [varus] alignment. Range of motion from [0-115] degrees. Knee is stable to varus and valgus as well as AP translation with <5mm. Patient has a [negative] McMurrays. There is [no] pain with patellofemoral compression and [no] crepitus noted. The knee is [tender] to palpation [medially]. The right knee was also examined. The right knee is in [varus] alignment. Range of motion from [0-120] degrees. Knee is stable to varus and valgus as well as AP translation with <5mm. Patient has a [negative] McMurrays. There is [no] pain with patellofemoral compression and [no] crepitus noted. The knee is [tender] to palpation [medially]. X-rays demonstrate bilateral joint space narrowing medially and varus deformity. Assessment and Plan Problem List (1) Arthritis of both knees: Status: Acute Plan: Patient is a pleasant 54-year-old female with bilateral knee pain and bilateral knee arthritis. She would like a left knee injection today as it has been over 3 months and the last one has worn off Recommend knee cortisone injection as patient would like to proceed with conservative treatment at this time. The risks and benefits of the procedure were reviewed with the patient and patient gave verbal consent to continue with the procedure. Procedure: performed by Dr. Bhatia Using sterile technique the left knee was thoroughly prepped with alcohol, and approximately 1 cc of Depo-Medrol 80mg/mL and 4 cc of 0.2% ropivacaine was injected without resistance into the medial tibial femoral joint space. The patient tolerated the procedure. Given that she has had significant right knee pain, she would like to get surgery for the right knee. She has been trying to lose weight and is on Ozempic. The nature and purpose of the total knee replacement, alternative method(s) of treatment, the material risks involved, and the possibility of complications were fully explained to the patient. The patient does NOT have any of the following contraindications to TKA: - Active infection of the knee joint, OR - Active systemic bacteremia, OR - Active skin infection or open wound at surgical site, OR - Neuropathic arthritis, OR - Severe, rapidly progressive neurological disease, OR - Severe medical condition that makes risks of surgery outweigh the potential benefit The patient was told the most common risks and complications associated with a total knee replacement include, but are not limited to: blood clots in the leg, fatal pulmonary embolism, dislocation of the prosthesis, intraoperative and postoperative fractures of the femur or tibia, infection, failure of the prosthesis or grafting materials, complications from anesthesia, reactions to blood transfusions, postoperative leg length inequality, instability of the knee replacement, nerve damage or injury, vascular injury, delayed wound healing, infection, other injury or even . In addition, there are risks associated with anesthesia given during this operation. Also, the patient was told that after undergoing a total knee replacement there may still be persistent pain or disability. The patient was informed that the success of this operation in part depends upon the mechanical devices which are going to be implanted and that these devices can fail or malfunction, and may need to be repaired or replaced and there are no guarantees as to the longevity of this device or its parts and that it or its parts could fail prematurely. The patient was also notified that during the course of surgery, there may be a need to use bone graft from donors, and that any bone graft used will be carefully screened for communicable diseases, including AIDS, hepatitis, Gee-Creutzfeldt, or other diseases, but despite the screening procedures, there is a small chance that they could contract one of these diseases. Finally, the patient was asked to follow completely and fully with all advice and recommended treatments, and that recovery and ultimate outcome are affected by their compliance with recommended treatment. We discussed the risks, benefits and treatment alternatives, and the patient is interested in proceeding with surgery. We will try to set this up as expeditiously as possible. Office Procedures GNS Level of Care Nursing/Assessment Patient Status: Established Patient Nursing Assessment/Reassesment: Medication Reconciliation, Update PMH in EMR and Vital Signs Coordination of Care: Complex Care and Chronic Disease 1-5, Education Complex Pt/Fam, Consent,records obtained, informed consent, Lab and Imaging orders, Results/Orders obtained and Staff clarify orders Special Needs: Language special needs Established Patient Charge Established Patient Point Assignment: 110 Established Patient Point Charge: EP Level 3 (80-115) Surgical Proc/IM SQ injection Major Surgical Procedure: Yes (LEFT KNEE INJECTION) Medication Given Medication Given Medication Given: Yes Documented Dose Given: 1 Route: Infiitration Medication Given Medication Given Medication Given: Yes Documented Dose Given: 4 Route: Infiitration Office Meds methylprednisolone acetate 80 mg/mL suspension for injection Performing Provider: Aj Bhatia MD Performing Location: [facility] Administered by: Aj Bhatia MD on 07/16/25 10:33 Dose Route Admin Location Dispensed Lot Number Expiration Date NDC Non Destructive Evaluation Specialist 80 mg intra-articular 1 mL [id number] 04/26/27 [address]-0 [employer] ropivacaine (PF) 2 mg/mL (0.2 %) injection solution Performing Provider: Aj Bhatia MD Performing Location: [facility] Administered by: Aj Bhatia MD on 07/16/25 10:33 Dose Route Admin Location Dispensed Lot Number Expiration Date [facility] Non Destructive Evaluation Specialist 20 mL Infiltration 20 mL [id number] 09/26/26 26954-766-98 [facility] Intake Visit Data Collection New Patient or Established: Established Patient (seen at [facility] within 3 years) Reason for Visit:: LEFT KNEE INJ/RIGHT KNEE PRE OP Seen by Clinical Staff ONLY (RN/MA): No Professor Of Vegetable Science Required: Yes PCP or OBGYN visit in last 3 months: Yes Hx Now: No Do You Feel Safe at Home: Yes Authorities Contacted: N/A Questionairres Past Medical History Past Medical History Have you ever been diagnosed with any of the following: Neurological Problems Cerebrovascular Accident (CVA): No Transient Ischemic Attacks (TIA): No Dementia: No Alzheimer's Disease: No Parkinson's Disease: No Brain Tumor: No Meningitis: No Seizures: No Epilepsy: No Multiple Sclerosis: No Cerebral Palsy: No Amyotrophic Lateral Sclerosis (ALS/Eliz Gehrig's): No Guillain-Bells Syndrome: No Spina Bifida: No Paralysis: No Peripheral Neuropathy: No Cordero's Palsy: No Subdural Hematoma: No Migraine: No Head Trauma: No Spinal Cord Injury: No Traumatic Brain Injury: No Cardiology Problems Myocardial Infarction: No Cardiac Arrhythmia: No Atrial Fibrillation: No Angina: No Heart Murmur: No Coronary Artery Disease: No Atherosclerotic Heart Disease: No Peripheral Vascular Disease: No Hypercholesterolemia: No Aneurysm: No Congestive Heart Failure: No Congenital Heart Disease: No Valvular Heart Disease: No Rheumatic Fever: No Cardiomyopathy: No Edema: No Pericarditis: No Cellulitis: No Deep Vein Thrombosis: No Hypertension: No Hypotension: No Varicose Veins: No Respiratory Problems Chronic Obstructive Pulmonary Disease (COPD): No Asthma: No Bronchitis: No Emphysema: No Pneumonia: No Pulmonary Fibrosis: No Tuberculosis: No Pulmonary Embolism: No Pulmonary Edema: No Sleep Apnea: No CPAP Dependent: No Respiratory Aspiration: No Dyspnea: No Orthopnea: No Hx Cough: No Cough: No Wheezing: No Chest Deformities: No Smoking: No Smoking Cessation Counseling: No Smoking Exposure: No Tobacco Use: No Clubbing: No Exposure to Respiratory Irritants: No Intubation: No Stomache/Intestinal Problems Liver Cancer: No Hepatitis: No Cirrhosis: No Pancreatic Cancer: No Pancreatitis: No Celiac Disease: No Gall Bladder Disease: No Gastrointestinal Bleed: No Esophageal Varices: No Hunter's Esophagus: No Colitis: No Ulcerative Colitis: No Diverticulitis: No Diverticulosis: No Ulcer: No Colorectal Cancer: No Irritable Bowel: No Crohn's Disease: No Obstructive Bowel: No Hiatal Hernia: No Hemorrhoids: No Gastroesophageal Reflux Disease: No Polyps: No Obesity: No Genital/Urinary Problems Chronic Kidney Disease: No Renal Disease: No Kidney Stones: No Polycystic Kidney Disease: No Neurogenic Bladder: No Inguinal Hernia: No Dialysis: No Reproductive Problems Breast Cancer: No Endometriosis: No Fibroids: No Genital Herpes: No Gonorrhea: No Pelvic Inflammatory Disease: No Polycystic Ovarian Syndrome: No Previous Pregnancies: No Syphilis: No Uterine Prolapse: No Musculoskeletal Problems Muscular Dystrophy: No Myasthenia Gravis: No Marfan's Syndrome: No Bone Cancer: No Arthritis: No Rheumatoid Arthritis: No Osteoporosis: No Degenerative Disk Disease: No Gout: No Scoliosis: No Carpal Tunnel Syndrome: No Fibromyalgia: No Fractures: No Degenerative Joint Disease: No Osteomyelitis: No Poliovirus: No Head,Eye,Nose,Throat Problems Cataracts: No Glaucoma: No Blind: No Retinal Detachment: No Macular Degeneration: No Chronic Ear Infections: No Deafness: No Eye Prosthesis: No Endocrine Problems Diabetes Mellitus Type 1: Yes Diabetes Mellitus Type 2: No Hypoglycemia: No García's Syndrome: No Luis Fernando's Disease: No Hyperthyroidism: No Hypothyroidism: No Thyroid Cancer: No Parathyroid Disease: No Pituitary Disease: No Systemic Lupus Erythematosus: No Syndrome of Inappropriate Antidiuretic Hormone: No Adrenal Disease: No Graves' Disease: No Blood Problems Anemia: No Leukemia: No Hemophilia: No Thalassemia: No Sickle Cell Disease: No Clotting Problems: No Psychologic Problems Schizophrenia: No Recreational Drug Use: No Bipolar Disorder: No Depression: No Anxiety: No Behavior Problems: No Self-Mutilation: No Attention Deficit Disorder: No Attention Deficit Hyperactivity Disorder: No Depression: No Post Traumatic Stress Disorder: No Eating Disorder: No Other Problems Hospitalization: No Autoimmune Disease: No Down Syndrome: No Autism: No Developmental Delay: No Cosmetic Surgery: No Shingles: No Falls: No Blood Transfusions: No Blood Transfusion Reaction: No Anesthesia Reactions: No Organ Transplant: No Chemotherapy: No Radiation Therapy: No Hyperbaric Therapy: No MRSA: No VRSA: No Vancomycin-Resistant Enterococci: No Human Immunodeficiency Virus (HIV): No Chicken Pox: No Measles: No Mumps: No Rubella (Vietnamese Measles): No Pertussis: No Klebsiella Pneumoniae Carbapenemase Producing Bacteria: No Clostridium Difficile: No Hepatitis A: No Hepatitis B: No Hepatitis C: No Communicable Disease: No Cancer: No Cervical Cancer: No Lung Cancer: No Ovarian Cancer: No Surgical History Angioplasty: No Appendectomy: No Bariatric Surgery: No Breast Surgery: No Cancer Surgery: No Carotid Endarterectomy: No Cholecystectomy: No Colectomy: No Colostomy: No Coronary Artery Bypass Graft: No Valve Replacement: No Herniorrhaphy: No Total Hip Replacement: No Total Knee Replacement: No Hysterectomy: No Pacemaker: No Sinus Surgery: No Splenectomy: No TAHBSO-Total Abdominal Hysterectomy: No Thyroidectomy: No Ureter Stent: No Subjective Visit Visit for: follow up visit, knee and injections (LEFT KNEE) Immunization / Flu Flu Vaccine in the Last 12 Months: No Flu Vaccine Exclusion Criteria: No Exclusion Criteria History of Present Illness Chief complaint: RIGHT KNEE F/U INJECTIONS Patient is a 54-year-old female whose been doing well with the injections. We will give her an injection today. We are alternating injections as she has diabetes. Her diabetes is well controlled with an a1c of 5.2. She did well with the Prior left knee injection 3 months ago and would like another 1 today. We are staggering the injection as she does have diabetes. She would like to get surgery for her right knee as she has not received great pain relief. Personal History Red flag PMH: none BMI Counceling provided: Yes Pain Pain level (0-10): 9 Pain duration: 1 WEEK Pain location: inside (medial) and anterior Pain quality: aching Pain timing: increases with activity Associated signs & symptoms: none Ambulatory data Ambulatory device: none Walking distance (minutes): 1 (HOUR) Treatments Number of previous injections: 12 Improvement with previous injections: Yes Number of Physical Therapy sessions: 0 Improvement with PT: No Improvement with NSAIDS: no Review of Systems Review of Systems: All systems negative unless otherwise noted in HPI.
[2025-07-16 10:26] VITALS: BP 118/80; PULSE 93; RESP 18; TEMP 36.6; O2SAT 97; BMI 35.9
== END 2025-07-16 10:35 | disposition home or self-care (01) ==
LOC: HODSRG 10:03
PROVIDERS: PCP Physician Assistant Medical; Referring Provider Physician Assistant Medical; Supervising Provider Orthopaedic Surgery Adult Reconstructive Orthopaedic Surgery; Visit Provider Orthopaedic Surgery Adult Reconstructive Orthopaedic Surgery
DX: M17.0 Bilateral primary osteoarthritis of knee (principal); M25.562 Pain in left knee; M25.561 Pain in right knee; E10.9 Type 1 diabetes mellitus without complications
CPT/HCPCS: 20610; 99213; J1010; J2795; G0463

== ENCOUNTER → 2025-10-16 | Outpatient (CLI) | payer MEDICAID, SELFPAY ==
[2025-10-16 12:59] LABS: HCG Qualitative,Urine Negative
--- NOTE | 2025-10-16 13:00 | XR_ITS ---
Examination: CT right lower extremity, without contrast. 2-D sagittal reconstructions. 2-D coronal reconstructions. 3-D reconstructions. Date and time of exam: October 16, 2025, 12 0 8:00 p.m. INDICATIONS: Diagnosis primary unilateral right knee osteoarthritis, knee pain 7 years CTDI: vol (mGy): 16.4 DLP: (mGycm): 1038 Technique: Multiple 1.25 mm axial sections of the right lower extremity without intravenous contrast have been obtained. 2-D sagittal and coronal reconstructions have been obtained. 3-D reconstructions have been obtained. Low dose protocols were performed. One or more of the following dose reduction techniques were used; automated exposure control, adjustment of the mA and/or KV according to patient size, use of iterative reconstruction technique. Findings: Moderate osteopenia Moderate narrowing right hip joint No right hip fracture or dislocation Severe narrowing medial joint space right knee Significant osteoarthritis lateral and right patellofemoral joints No fracture IMPRESSION: Advanced right knee tricompartment osteoarthritis including severe narrowing medial joint space
== END | disposition home or self-care (01) ==
PROVIDERS: Referring Provider Orthopaedic Surgery Adult Reconstructive Orthopaedic Surgery; Visit Provider Orthopaedic Surgery Adult Reconstructive Orthopaedic Surgery
DX: M17.11 Unilateral primary osteoarthritis, right knee (principal); M25.861 Other specified joint disorders, right knee; Z32.00 Encounter for pregnancy test, result unknown
CPT/HCPCS: 73700; 81025

== ENCOUNTER 2025-10-17 08:58 | Outpatient (AMB) | payer MEDICAID, SELFPAY ==
--- NOTE | 2025-10-17 09:12 | ORTHONT_ITS ---
Vital signs 10/17/25 09:13 Height 1.57 m Height Method Stated Weight 89.414 kg Weight Measurement Method Standing Scale BMI 36.2 BP 124/80 Blood Pressure Source Automatic Cuff Blood Pressure Location Left Upper Arm Position Sitting Respiration 18 Pulse 100 Pulse Source Monitor Temp 97.9 F Temp Source Temporal Artery Scan Pulse Oximetry (%) 96 Oxygen Delivery Method Room Air Med/Allergies Allergies & Medications Allergies NKA* Allergy (Uncoded 10/17/25 09:15) Medication Reconciliation albuterol sulfate 90 mcg/actuation aerosol inhaler (ProAir HFA) 2 puff inhalation Q4HR PRN SHORTNESS OF BREATH OR WHEEZE #1 inh 12/23/17 [Rx Confirmed 10/17/25] amoxicillin 500 mg capsule 500 mg PO TID #30 caps 12/23/17 [Rx Confirmed 10/17/25] cholecalciferol (vitamin D3) 25 mcg (1,000 unit) capsule 25 mcg PO QDAY 09/07/24 [History Confirmed 10/17/25] fexofenadine 180 mg tablet (Allergy Relief (fexofenadine)) 180 mg PO Q24H 09/07/24 [History Confirmed 10/17/25] lancets 23 gauge (Acti-David Lancets) 09/07/24 [History Confirmed 10/17/25] pantoprazole 40 mg tablet,delayed release 40 mg PO QDAY 09/07/24 [History Confirmed 10/17/25] semaglutide 2 mg/dose (8 mg/3 mL) subcutaneous pen injector (Ozempic) 2 mg subcut QWEEK 09/07/24 [History Confirmed 10/17/25] Exam Exam Patient is in no acute distress and is cooperative with the examination today. Breathing is nonlabored. In no respiratory distress. Bilateral extremities were evaluated and demonstrates sensation intact to light touch. Palpable pedal pulses are present. No significant edema is present. Bilateral hips were examined. The patient has no pain with log roll of the hips. Internal rotation to 30 degrees and external rotation to 30 degrees is painless. Negative FADIR. The left knee was examined. The left knee is in [varus] alignment. Range of motion from [0-115] degrees. Knee is stable to varus and valgus as well as AP translation with <5mm. Patient has a [negative] McMurrays. There is [no] pain with patellofemoral compression and [no] crepitus noted. The knee is [tender] to palpation [medially]. The right knee was also examined. The right knee is in [varus] alignment. Range of motion from [0-120] degrees. Knee is stable to varus and valgus as well as AP translation with <5mm. Patient has a [negative] McMurrays. There is [no] pain with patellofemoral compression and [no] crepitus noted. The knee is [tender] to palpation [medially]. X-rays demonstrate bilateral joint space narrowing medially and varus deformity. Assessment and Plan Problem List (1) Arthritis of both knees: Status: Acute Plan: Patient is a pleasant 55-year-old female with bilateral knee pain and bilateral knee arthritis. She would like a left knee injection today as it has been over 3 months and the last one has worn off Recommend knee cortisone injection as patient would like to proceed with conservative treatment at this time. The risks and benefits of the procedure were reviewed with the patient and patient gave verbal consent to continue with the procedure. Procedure: performed by Dr. Bhatia Using sterile technique the left knee was thoroughly prepped with alcohol, and approximately 1 cc of Depo-Medrol 80mg/mL and 4 cc of 0.2% ropivacaine was injected without resistance into the medial tibial femoral joint space. The patient tolerated the procedure. Given that she has had significant right knee pain, she would like to get surgery for the right knee. She has been trying to lose weight and is on Ozempic. The nature and purpose of the total knee replacement, alternative method(s) of treatment, the material risks involved, and the possibility of complications were fully explained to the patient. The patient does NOT have any of the following contraindications to TKA: - Active infection of the knee joint, OR - Active systemic bacteremia, OR - Active skin infection or open wound at surgical site, OR - Neuropathic arthritis, OR - Severe, rapidly progressive neurological disease, OR - Severe medical condition that makes risks of surgery outweigh the potential benefit The patient was told the most common risks and complications associated with a total knee replacement include, but are not limited to: blood clots in the leg, fatal pulmonary embolism, dislocation of the prosthesis, intraoperative and postoperative fractures of the femur or tibia, infection, failure of the prosthesis or grafting materials, complications from anesthesia, reactions to blood transfusions, postoperative leg length inequality, instability of the knee replacement, nerve damage or injury, vascular injury, delayed wound healing, infection, other injury or even . In addition, there are risks associated with anesthesia given during this operation. Also, the patient was told that aft er undergoing a total knee replacement there may still be persistent pain or disability. The patient was informed that the success of this operation in part depends upon the mechanical devices which are going to be implanted and that these devices can fail or malfunction, and may need to be repaired or replaced and there are no guarantees as to the longevity of this device or its parts and that it or its parts could fail prematurely. The patient was also notified that during the course of surgery, there may be a need to use bone graft from donors, and that any bone graft used will be carefully screened for communicable diseases, including AIDS, hepatitis, Gee-Creutzfeldt, or other diseases, but despite the screening procedures, there is a small chance that they could contract one of these diseases. Finally, the patient was asked to follow completely and fully with all advice and recommended treatments, and that recovery and ultimate outcome are affected by their compliance with recommended treatment. We discussed the risks, benefits and treatment alternatives, and the patient is interested in proceeding with surgery. We will try to set this up as expeditiously as possible. She is scheduled for 11/11/2025 Office Procedures GNS Level of Care Nursing/Assessment Patient Status: Established Patient Nursing Assessment/Reassesment: Medication Reconciliation, Update PMH in EMR and Vital Signs Coordination of Care: Complex Care and Chronic Disease 1-5, Education Complex Pt/Fam, Consent,records obtained, informed consent, Results/Orders obtained and Staff clarify orders Special Needs: Language special needs Established Patient Charge Established Patient Point Assignment: 95 Established Patient Point Charge: EP Level 3 (80-115) Surgical Proc/IM SQ injection Minor Surgical Procedure: Yes (LEFT KNEE INJECTION) Medication Given Medication Given Medication Given: Yes Documented Dose Given: 1 Route: Infiitration Medication Given Medication Given Medication Given: Yes Documented Dose Given: 4 Route: Infiitration Office Meds methylprednisolone acetate 80 mg/mL suspension for injection Performing Provider: Aj Bhatia MD Performing Location: [facility] Administered by: Aj Bhatia MD on 10/17/25 10:01 Dose Route Admin Location Dispensed Lot Number Expiration Date Pack age [facility] Medical Technologist Blood Bank 80 mg intra-articular 1 mL [id number] 06/26/27 [address]-5 [id number] [employer] ropivacaine (PF) 2 mg/mL (0.2 %) injection solution Performing Provider: Aj Bhatia MD Performing Location: [facility] Administered by: Aj Bhatia MD on 10/17/25 10:01 Dose Route Admin Location Dispensed Lot Number Expiration Date Pack age [facility] Medical Technologist Blood Bank 20 mL Infiltration 20 mL [id number] 12/27/27 54474-560-03 [id number] [facility] Intake Visit Data Collection New Patient or Established: Established Patient (seen at [facility] within 3 years) Reason for Visit:: PRE OP R TKA/L KNEE INJECTION Seen by Clinical Staff ONLY (RN/MA): No Slope Hoist Operator Required: Yes PCP or OBGYN visit in last 3 months: Yes Hx Now: No Do You Feel Safe at Home: Yes Authorities Contacted: N/A Questionairres Past Medical History Past Medical History Have you ever been diagnosed with any of the following: Neurological Problems Cerebrovascular Accident (CVA): No Transient Ischemic Attacks (TIA): No Dementia: No Alzheimer's Disease: No Parkinson's Disease: No Brain Tumor: No Meningitis: No Seizures: No Epilepsy: No Multiple Sclerosis: No Cerebral Palsy: No Amyotrophic Lateral Sclerosis (ALS/Eliz Gehrig's): No Guillain-Luther Syndrome: No Spina Bifida: No Paralysis: No Peripheral Neuropathy: No Cordero's Palsy: No Subdural Hematoma: No Migraine: No Head Trauma: No Spinal Cord Injury: No Traumatic Brain Injury: No Cardiology Problems Myocardial Infarction: No Cardiac Arrhythmia: No Atrial Fibrillation: No Angina: No Heart Murmur: No Coronary Artery Disease: No Atherosclerotic Heart Disease: No Peripheral Vascular Disease: No Hypercholesterolemia: No Aneurysm: No Congestive Heart Failure: No Congenital Heart Disease: No Valvular Heart Disease: No Rheumatic Fever: No Cardiomyopathy: No Edema: No Pericarditis: No Cellulitis: No Deep Vein Thrombosis: No Hypertension: No Hypotension: No Varicose Veins: No Respiratory Problems Chronic Obstructive Pulmonary Disease (COPD): No Asthma: No Bronchitis: No Emphysema: No Pneumonia: No Pulmonary Fibrosis: No Tuberculosis: No Pulmonary Embolism: No Pulmonary Edema: No Sleep Apnea: No CPAP Dependent: No Respiratory Aspiration: No Dyspnea: No Orthopnea: No Hx Cough: No Cough: No Wheezing: No Chest Deformities: No Smoking: No Smoking Cessation Counseling: No Smoking Exposure: No Tobacco Use: No Clubbing: No Exposure to Respiratory Irritants: No Intubation: No Stomache/Intestinal Problems Liver Cancer: No Hepatitis: No Cirrhosis: No Pancreatic Cancer: No Pancreatitis: No Celiac Disease: No Gall Bladder Disease: No Gastrointestinal Bleed: No Esophageal Varices: No Hunter's Esophagus: No Colitis: No Ulcerative Colitis: No Diverticulitis: No Diverticulosis: No Ulcer: No Colorectal Cancer: No Irritable Bowel: No Crohn's Disease: No Obstructive Bowel: No Hiatal Hernia: No Hemorrhoids: No Gastroesophageal Reflux Disease: No Polyps: No Obesity: No Genital/Urinary Problems Chronic Kidney Disease: No Renal Disease: No Kidney Stones: No Polycystic Kidney Disease: No Neurogenic Bladder: No Inguinal Hernia: No Dialysis: No Reproductive Problems Breast Cancer: No Endometriosis: No Fibroids: No Genital Herpes: No Gonorrhea: No Pelvic Inflammatory Disease: No Polycystic Ovarian Syndrome: No Previous Pregnancies: No Syphilis: No Uterine Prolapse: No Musculoskeletal Problems Muscular Dystrophy: No Myasthenia Gravis: No Marfan's Syndrome: No Bone Cancer: No Arthritis: No Rheumatoid Arthritis: No Osteoporosis: No Degenerative Disk Disease: No Gout: No Scoliosis: No Carpal Tunnel Syndrome: No Fibromyalgia: No Fractures: No Degenerative Joint Disease: No Osteomyelitis: No Poliovirus: No Head,Eye,Nose,Throat Problems Cataracts: No Glaucoma: No Blind: No Retinal Detachment: No Macular Degeneration: No Chronic Ear Infections: No Deafness: No Eye Prosthesis: No Endocrine Problems Diabetes Mellitus Type 1: Yes Diabetes Mellitus Type 2: No Hypoglycemia: No [place]'s Syndrome: No Pope's Disease: No Hyperthyroidism: No Hypothyroidism: No Thyroid Cancer: No Parathyroid Disease: No Pituitary Disease: No Systemic Lupus Erythematosus: No Syndrome of Inappropriate Antidiuretic Hormone: No Adrenal Disease: No Graves' Disease: No Blood Problems Anemia: No Leukemia: No Hemophilia: No Thalassemia: No Sickle Cell Disease: No Clotting Problems: No Psychologic Problems Schizophrenia: No Recreational Drug Use: No Bipolar Disorder: No Depression: No Anxiety: No Behavior Problems: No Self-Mutilation: No Attention Deficit Disorder: No Attention Deficit Hyperactivity Disorder: No Depression: No Post Traumatic Stress Disorder: No Eating Disorder: No Other Problems Hospitalization: No Autoimmune Disease: No Down Syndrome: No Autism: No Developmental Delay: No Cosmetic Surgery: No Shingles: No Falls: No Blood Transfusions: No Blood Transfusion Reaction: No Anesthesia Reactions: No Organ Transplant: No Chemotherapy: No Radiation Therapy: No Hyperbaric Therapy: No MRSA: No VRSA: No Vancomycin-Resistant Enterococci: No Human Immunodeficiency Virus (HIV): No Chicken Pox: No Measles: No Mumps: No Rubella (Yoruba Measles): No Pertussis: No Klebsiella Pneumoniae Carbapenemase Producing Bacteria: No Clostridium Difficile: No Hepatitis A: No Hepatitis B: No Hepatitis C: No Communicable Disease: No Cancer: No Cervical Cancer: No Lung Cancer: No Ovarian Cancer: No Surgical History Angioplasty: No Appendectomy: No Bariatric Surgery: No Breast Surgery: No Cancer Surgery: No Carotid Endarterectomy: No Cholecystectomy: No Colectomy: No Colostomy: No Coronary Artery Bypass Graft: No Valve Replacement: No Herniorrhaphy: No Total Hip Replacement: No Total Knee Replacement: No Hysterectomy: No Pacemaker: No Sinus Surgery: No Splenectomy: No TAHBSO-Total Abdominal Hysterectomy: No Thyroidectomy: No Ureter Stent: No Subjective Visit Visit for: follow up visit, knee (RIGHT TKA) and injections (LEFT KNEE) Immunization / Flu Flu Vaccine in the Last 12 Months: No Flu Vaccine Exclusion Criteria: No Exclusion Criteria History of Present Illness Chief complaint: PRE OP RIGHT KNEE/LEFT KNEE F/U INJECTION Patient is a 54-year-old female whose been doing well with the injections. We will give her an injection today. We are alternating injections as she has diabetes. Her diabetes is well controlled with an a1c of 5.2. She did well with the Prior left knee injection 3 months ago and would like another 1 today. We are staggering the injection as she does have diabetes. She would like to get surgery for her right knee as she has not received great pain relief. Personal History Red flag PMH: none BMI Counceling provided: Yes Additional comments: WALKER WAS GIVEN FOR SX Pain Pain level (0-10): 9 Pain duration: 1 WEEK Pain location: inside (medial) and anterior Pain quality: aching Pain timing: increases with activity Associated signs & symptoms: none Ambulatory data Ambulatory device: walker (GIVEN TO PT) and none Walking distance (minutes): 1 (HOUR) Treatments Number of previous injections: 12 Improvement with previous injections: Yes Number of Physical Therapy sessions: 0 Improvement with PT: No Improvement with NSAIDS: no Review of Systems Review of Systems: All systems negative unless otherwise noted in HPI.
[2025-10-17 09:13] VITALS: BP 124/80; PULSE 100; RESP 18; TEMP 36.6; O2SAT 96; BMI 36.2
== END 2025-10-17 09:31 | disposition home or self-care (01) ==
LOC: HODSRG 08:59
PROVIDERS: PCP Physician Assistant Medical; Referring Provider Physician Assistant Medical; Supervising Provider Orthopaedic Surgery Adult Reconstructive Orthopaedic Surgery; Visit Provider Orthopaedic Surgery Adult Reconstructive Orthopaedic Surgery
DX: M25.562 Pain in left knee (principal); M25.561 Pain in right knee; M17.0 Bilateral primary osteoarthritis of knee
CPT/HCPCS: 20610; 99213; J1010; J2795; G0463

== ENCOUNTER 2025-10-30 07:00 | Day surgery (SDC) | payer MEDICAID, SELFPAY ==
[2025-10-29 08:02] VITALS: BMI 34.3
[2025-10-29 08:53] LABS: Basophils # (Auto) 0.1 Thou/mm3 (0.0-0.2); Basophils % (Auto) 1 % (0-2.5); Eosinophils # (Auto) 0.2 Thou/mm3 (0.0-0.5); Eosinophils % (Auto) 2 % (0-10); Hematocrit 42.4 % (36.0-46.0); Hemoglobin 14.5 g/dL (12.0-16.0); Immature Granulocytes Auto 0.04 Thou/mm3 (0.00-0.00); Lymphocytes # (Auto) 2.5 Thou/mm3 (1.0-4.8); Lymphocytes % (Auto) 28 % (10-50); Mean Corpuscular HGB Conc 34.2 g/dl (31.0-37.0); Mean Corpuscular Hemoglobin 31.7 pg (25.0-35.0); Mean Corpuscular Volume 93 fL (80-100); Monocytes # (Auto) 0.6 Thou/mm3 (0.0-0.8); Monocytes % (Auto) 7 % (0-12); Neutrophils # (Auto) 5.7 Thou/mm3 (1.8-7.7); Neutrophils % (Auto) 63 % (37-80); Nucleated Red Blood Cell # 0.00 Thou/mm3 (0.00-0.00); Nucleated Red Blood Cell % 0 /100 WBC (0); Platelet Count 317 Thou/mm3 (140-440); RDW Standard Deviation 41.1 fL (36.4-46.3); Red Blood Count 4.57 Miln/mm3 (4.00-5.20); White Blood Count 9.1 Thou/mm3 (3.6-11.0)
[2025-10-29 09:06] LABS: INR 1.0 (0.9-1.3); Partial Thromboplastin Time 29.3 Seconds (22.0-36.0); Prothrombin Time 10.5 Seconds (9.0-12.2)
[2025-10-29 09:08] LABS: Alanine Aminotransferase 21 U/L (10-49); Albumin, Serum 4.5 gm/dL (3.5-5.0); Alkaline Phosphatase 124 U/L (46-116); Anion Gap 10 (7-16); Aspartate Amino Transferase 17 U/L (0-34); BUN/Creatinine Ratio 17 Ratio (12-20); Bilirubin,Total 0.3 mg/dL (0.3-1.2); Blood Urea Nitrogen 10 mg/dL (9-23); Calcium 9.0 mg/dL (8.3-10.6); Calcium (Corrected) 9.0 mg/dL (8.5-10.1); Carbon Dioxide 26.3 mMol/L (20.0-31.0); Chloride 106 mMol/L (98-107); Creatinine (Component) 0.6 mg/dL (0.6-1.3); Estimated Creatinine Clearance 101.3 mL/min (>60); Glucose 117 mg/dL (74-106); Osmolality,Calculated 283 (275-295); Potassium 3.4 mMol/L (3.4-5.1); Sodium 142 mMol/L (136-145); eGFR > 60 See Note
[2025-10-29 13:00] LABS: Albumin/Globulin Ratio 1.5 (1.2-2.2); Globulin 3.1 gm/dL (2.3-3.5); Total Protein 7.6 gm/dL (5.7-8.2)
[2025-10-30] VITALS (17 sets, daily range): BP systolic 103–127; BP diastolic 63–90; PULSE 93–102; RESP 12–20; TEMP 36.7–36.9; O2SAT 96–99; BMI 37.7
[2025-10-30] MEDS: ACETAMINOPHEN 325 MG TABLET 650 MG PO (08:37)
[2025-10-30] MEDS: MELOXICAM 7.5 MG TABLET PO (08:39)
[2025-10-30] MEDS: PREGABALIN 75 MG CAPSULE PO (08:39)
--- NOTE | 2025-10-30 11:36 | XR_ITS ---
EXAMINATION: Right knee 2 views TECHNIQUE: AP portable supine lateral right knee 2 views Date and time: October 30, 2025, 12:28 p.m. INDICATION: Postop knee replacement today. FINDINGS: Total right knee replacement Satisfactory alignment No fracture IMPRESSION: Total right knee replacement with satisfactory alignment
--- NOTE | 2025-10-30 11:37 | ESOP_ITS ---
Date of Procedure 10/30/25 Pre Op Diagnosis right knee osteoarthritis Post Op Diagnosis right knee osteoarthritis Procedure right total knee replacement radha Findings full thickness cartilage loss and ostoephytes Procedure Description Indication: The patient has a long history of right knee pain. X-rays show degenerative arthritis involving the knee. Over the past several years the patient has had increasing pain, progressive limitation in function. He has failed conservative measures including activity modification, physical therapy, injections, anti- inflammatories, and assistive devices. After a lengthy discussion of the risks and benefits, the patient presents now for total knee replacement. The nature and purpose of the total knee replacement, alternative method(s) of treatment, the material risks involved, and the possibility of complications were fully explained to the patient. The patient was told the most common risks and complications associated with a total knee replacement include, but are not limited to blood clots in the leg, fatal pulmonary embolism, dislocation of the prosthesis, intraoperative and postoperative fractures of the femur or tibia, infection, failure of the prosthesis or grafting materials, complications from anesthesia, reactions to blood transfusions, postoperative leg length inequality, instability of the knee replacement, nerve damage or injury, vascular injury, delayed wound healing, infections, other injury or even . In addition, there are risks associated with anesthesia given during this operation, temporary or permanent numbness on the skin lateral to the incision can be a complication unique to total knee surgery, and kneeling can be painful after knee replacement surgery. Also, the patient was told that after undergoing a total knee replacement there may still be pain or disability. We discussed with the patient that we will be using a robot-assisted technology. We discussed that there is a possibility of converting to manual instrumentation. The patient was informed that the success of this operation in part depends upon the mechanical devices which are going to be implanted and that these devices can fail or malfunction, and may need to be repaired or replaced and there are no guarantees as to the longevity of this device or its part and that it or its parts could fail prematurely. Finally, the patient was asked to follow completely and fully with all advice and recommended treatments, and that recovery and ultimate outcome are affected by their compliance with recommended treatment. Surgical technique: Patient was marked and consented in the pre-operative area. The patient was brought to the operating room and placed on the operating table in a supine position. Prior to positioning, a timeout procedure was performed between the surgeon, the anesthesiologist, and the nursing staff where the patient and the operative side were identified and confirmed. After adequate general anesthetic was obtained, the right lower extremity was prepped and draped in the usual sterile fashion. A weight based dose of Cefazolin were administered within 1 hour prior to incision. The robot was preregistered and calibrated before the incision. The extremity was exsanguinated with an esmarch badge and tourniquet inflated to 250mmHg. A midline incision was made. A median parapatellar arthrotomy was made. The patella was subluxed laterally. A medial release was performed to expose the medial tibia. His femoral and tibial pins were placed through an intra incisional manner for both cases. Every effort was made to ensure that the distalmost aspect of the pin was hung in the second cortex. The arrays were then tightened several times to ensure that it was fixed for the remainder of the case. Both femoral and tibial checkpoints were then placed. We then went through the registration process of the bone. We then assessed the knee deformity and attempted to correct it. We also used the robot to aid in judging laxity in both extension and flexion. Final based on laxity and alignment we changed the preoperative assessment to obtain proper proper implant positioning and to correct deformity. Attention was then placed to the tibia. We made a tibial cut using the robot ensuring that both the MCL and the patella tendon were protected with retractors. We then went to the femur and made the posterior cut followed by the anterior cut and the anterior chamfer. The bone was then removed and we made a distal femur cut and a posterior chamfer cut. We verified all cuts. A trial reduction was performed with a size 3 femoral component and a size 2 keeled tibial component. The patella tracked centrally, and no lateral retinacular release was necessary. The trial implants were removed. The arrays, pins, and checkpoints were all removed. We performed a verification that all pins were removed. The cut bone surfaces were lavaged. A size 3 right femoral component, a size 2 keeled tibial component were impacted into position. The knee was felt to be well balanced in the sagittal and coronal plane. The final 2x10 mm cruciate- substituting articular insert was impacted into the tibial tray. The knee was brought out to full extension, flexed up to 120 degrees. It was stable to varus and valgus stress and appropriately balanced in flexion and extension. The wounds were copiously irrigated following deflation of tourniquet. The medial retinaculum was reapproximated with #1 vicryl and quill. The subcutaneous tissues were closed with 0 and 2-0 interrupted Vicryl. The skin was closed with 3-0 Monofilament V loc suture. A sterile dressing was applied. The patient was transferred to a bed and brought to recovery in stable condition. The patient tolerated the procedure well. There were no intraoperative complications. Sponge and needle counts were correct times 2. As the attending surgeon, I attest I was present and performed the entire operation. Grafts/Implants Size 3 CR Femur Size 2 Tibia 10mm poly CS Anesthesia spinal Implants Implants comments: jean Pathology / specimen None Pathology comment: none Estimated Blood Loss 150 Condition Stable Disposition same day Surgeon Aj Bhatia MD Surgical Staff Operation Date: 10/30/25 10:45 Case Staff Anesthesiologist: Selvin Teague RNsales support advisor: Daniela Farr
--- NOTE | 2025-10-30 12:00 | SUR.PHASEI ---
1200 Patient arrived to recovery resting comfortably in [facility], awake and alert, breathing unlabored, vital signs stable, denies pain and nausea, dressing intact to right lower leg; prineo, abd, telfa, webril, marcio wraps, no bleeding noted, bilateral dorsalis pedis pulses present when palpated, patient has good circulation to right lower extremity; skin color normal for patient and warm to touch, post spinal anesthesia assessment via ice; patient has dermatome sensation at L1, able to move bilateral lower extremity; report received from Dr. Teague and Antionette RUFFIN
[2025-10-30] MEDS: RINGERS LACTATED 1000 ML 1,000 ML 999 ML IV (12:41)
--- NOTE | 2025-10-30 15:30 | SUR.PHASEII ---
1530 patient cleared by physical therapy to proceed with discharge
--- NOTE | 2025-10-30 15:53 | SUR.PHASEII ---
1553 Patient meets discharge criteria from recovery, awake and alert, breathing unlabored, vital signs stable, denies pain and nausea, dressing intact; no bleeding noted, patient voided during physical therapy, assisted with dressing into her clothing by her daughter, discharge instructions given to patient and patients daughters with the assistance of the telephone interpreter translator ID# [id number], patients daughter signed discharge instructions. Patient given all her belongings prior to discharge, transported via wheelchair and left in a private vehicle.
--- NOTE | 2025-11-04 15:26 | PD.ANESPROG ---
Documentation for date of: 11/04/25 POST ANESTHESIA NOTE: Patient had spinal anaesthesia and R adductor block and MAC for R TKA on 10/30/25. I just called and spoke with her on the phone via aggregate conveyor operator and she denied any problems from anesthesia. She asked about having swelling on her foot and knee area and I educated her that some swelling is expected but be sure to discuss that with her surgeon for follow up and she endorsed she has follow up on and had no further questions for me. She specifically denied PONV, back pain and persistent numbness or weakness of her legs. Selvin Tegaue MD Anesthesia Progress Note Progress Note Most recent Vital Signs: Last Vital Signs Temp 98.5 F 10/30/25 14:30 Pulse 100 10/30/25 15:30 Resp 17 10/30/25 15:30 BP 126/86 H 10/30/25 15:30 Pulse Ox 96 10/30/25 15:30
== END 2025-10-30 15:53 | disposition home or self-care (01) ==
PROVIDERS: Anesthesiology; PCP Physician Assistant Medical; Referring Provider Orthopaedic Surgery Adult Reconstructive Orthopaedic Surgery; Visit Provider Orthopaedic Surgery Adult Reconstructive Orthopaedic Surgery
PROC: (CPT 27447; principal; 2025-10-30 10:45)
DX: M17.11 Unilateral primary osteoarthritis, right knee (principal); M25.761 Osteophyte, right knee
CPT/HCPCS: 27447; 20985; 36415; 73560; 80053; 85025; 85610; 85730; 97162; A4217; A4649; C1713; C1776; J0690; J1100; J1200; J2250; J2371; J2704; J2765; J2795; J3010; J3490; J7120; J7999; A4648; A9270

== ENCOUNTER 2025-11-12 10:44 | Outpatient (AMB) | payer MEDICAID, SELFPAY ==
--- NOTE | 2025-11-12 10:59 | ORTHONT_ITS ---
Vital signs 11/12/25 11:00 Height 1.52 m Height Method Measured Weight 88.195 kg Weight Measurement Method Standing Scale BMI 38.1 BP 123/71 Blood Pressure Source Automatic Cuff Blood Pressure Location Left Upper Arm Position Sitting Respiration 19 Pulse 109 H Pulse Source Monitor Temp 97.3 F Temp Source Temporal Artery Scan Pulse Oximetry (%) 97 Oxygen Delivery Method Room Air Med/Allergies Allergies & Medications Allergies No Known Allergies Allergy (Verified 11/12/25 11:00) Medication Reconciliation cholecalciferol (vitamin D3) 25 mcg (1,000 unit) capsule 25 mcg PO QDAY 09/07/24 [History Confirmed 11/12/25] semaglutide 2 mg/dose (8 mg/3 mL) subcutaneous pen injector (Ozempic) 2 mg subcut QWEEK 09/07/24 [History Confirmed 11/12/25] estradiol 0.05 mg-norethindrone 0.25 mg/24 hr semiwkly transderm patch (CombiPatch) 1 patch topical 2 X WEEKLY 10/29/25 [History Confirmed 11/12/25] loratadine 10 mg capsule 10 mg PO QDAY 10/29/25 [History Confirmed 11/12/25] pantoprazole 40 mg tablet,delayed release (Protonix) 40 mg PO QAM 10/29/25 [History Confirmed 11/12/25] sucralfate 1 gram tablet 1 g PO BID 10/29/25 [History Confirmed 11/12/25] acetaminophen 500 mg tablet (Acetaminophen Extra Strength) 1,000 mg (2 x 500 mg) PO Q6H PRN pain #90 tabs 10/30/25 [Rx Confirmed 11/12/25] aspirin 81 mg tablet,delayed release 81 mg PO BID #60 tabs 10/30/25 [Rx Confirmed 11/12/25] doxycycline hyclate 100 mg tablet 100 mg PO BID #14 tabs 10/30/25 [Rx Confirmed 11/12/25] gabapentin 300 mg capsule 300 mg PO .qhs #30 caps 10/30/25 [Rx Confirmed 11/12/25] pantoprazole 40 mg tablet,delayed release 40 mg PO QDAY #30 tabs 10/30/25 [Rx Confirmed 11/12/25] sennosides 8.6 mg-docusate sodium 50 mg tablet (Senna-S) 1 tab-cap PO QDAY #30 tabs 10/30/25 [Rx Confirmed 11/12/25] cyclobenzaprine 5 mg tablet 5 mg PO QHS PRN muscle spasm #30 tabs 11/05/25 [Rx Confirmed 11/12/25] oxycodone 5 mg tablet 5 mg PO Q6H PRN pain #28 tabs 11/05/25 [Rx Confirmed 11/12/25] oxycodone 5 mg tablet 5 mg PO Q6H PRN pain #28 tabs 11/06/25 [Rx Confirmed 11/12/25] meloxicam 7.5 mg tablet 7.5 mg PO QDAY #45 tabs 11/12/25 [Rx] Exam Exam Patient is in no acute distress and is cooperative with the examination today. Breathing is nonlabored. Patient has a normal mood and affect. Bilateral extremities were evaluated and demonstrates sensation intact to light touch. Palpable pedal pulses are present. No significant edema is present. Bilateral hips were examined. The patient has no pain with log roll of the hips. Internal rotation to 30 degrees and external rotation to 30 degrees is painless. Negative FADIR. Right knee was examined today. The right knee is in neutral alignment. The incision is clean dry and intact. Assessment and Plan Problem List (1) Arthritis of both knees: Status: Acute Plan: Patient is a pleasant 55-year-old female with bilateral knee pain and bilateral knee arthritis. She is doing well status post right total knee replacement. We will see her back in 4 weeks for routine follow-up. She is to start outpatient physical therapy and work aggressively with them Office Procedures GNS Level of Care Nursing/Assessment Patient Status: Established Patient Nursing Assessment/Reassesment: Medication Reconciliation, Update PMH in EMR and Vital Signs Coordination of Care: Complex Care and Chronic Disease 1-5, Education Complex Pt/Fam, Consent,records obtained, informed consent, Ref for ancillary service (PHYSICAL THERAPY), Results/Orders obtained and Staff clarify orders Special Needs: Language special needs Established Patient Charge Established Patient Point Assignment: 115 Established Patient Point Charge: EP Level 3 (80-115) MA Intake Visit Data Collection New Patient or Established: Established Patient (seen at [facility] within 3 years) Reason for Visit:: 2 WK R TKA Seen by Clinical Staff ONLY (RN/MA): No Lumite Injector Required: Yes PCP or OBGYN visit in last 3 months: Yes Hx Now: No Do You Feel Safe at Home: Yes Authorities Contacted: N/A Questionairres Past Medical History Past Medical History Have you ever been diagnosed with any of the following: Neurological Problems Cerebrovascular Accident (CVA): No Transient Ischemic Attacks (TIA): No Dementia: No Alzheimer's Disease: No Parkinson's Disease: No Brain Tumor: No Meningitis: No Seizures: No Epilepsy: No Multiple Sclerosis: No Cerebral Palsy: No Amyotrophic Lateral Sclerosis (ALS/Eliz Gehrig's): No Guillain-[place] Syndrome: No Spina Bifida: No Paralysis: No Peripheral Neuropathy: No Cordero's Palsy: No Subdural Hematoma: No Migraine: No Head Trauma: No Spinal Cord Injury: No Traumatic Brain Injury: No Cardiology Problems Myocardial Infarction: No Cardiac Arrhythmia: No Atrial Fibrillation: No Angina: No Heart Murmur: No Coronary Artery Disease: No Atherosclerotic Heart Disease: No Peripheral Vascular Disease: No Hypercholesterolemia: No Aneurysm: No Congestive Heart Failure: No Congenital Heart Disease: No Valvular Heart Disease: No Rheumatic Fever: No Cardiomyopathy: No Edema: No Pericarditis: No Cellulitis: No Deep Vein Thrombosis: No Hypertension: No Hypotension: No Varicose Veins: Yes Respiratory Problems Chronic Obstructive Pulmonary Disease (COPD): No Asthma: No Bronchitis: Yes Emphysema: No Pneumonia: No Pulmonary Fibrosis: No Tuberculosis: No Pulmonary Embolism: No Pulmonary Edema: No Sleep Apnea: No CPAP Dependent: No Respiratory Aspiration: No Dyspnea: No Orthopnea: No Hx Cough: No Cough: No Wheezing: No Chest Deformities: No Smoking: No Smoking Cessation Counseling: No Smoking Exposure: No Tobacco Use: No Clubbing: No Exposure to Respiratory Irritants: No Intubation: No Stomache/Intestinal Problems Liver Cancer: No Hepatitis: No Cirrhosis: No Pancreatic Cancer: No Pancreatitis: No Celiac Disease: No Gall Bladder Disease: No Gastrointestinal Bleed: No Esophageal Varices: No Hunter's Esophagus: No Colitis: No Ulcerative Colitis: No Diverticulitis: No Diverticulosis: No Ulcer: No Colorectal Cancer: No Irritable Bowel: No Crohn's Disease: No Obstructive Bowel: No Hiatal Hernia: No Hemorrhoids: No Gastroesophageal Reflux Disease: Yes Polyps: No Obesity: No Genital/Urinary Problems Chronic Kidney Disease: No Renal Disease: No Kidney Stones: No Polycystic Kidney Disease: No Neurogenic Bladder: No Inguinal Hernia: No Dialysis: No Reproductive Problems Breast Cancer: No Endometriosis: No Fibroids: No Genital Herpes: No Gonorrhea: No Pelvic Inflammatory Disease: No Polycystic Ovarian Syndrome: No Previous Pregnancies: Yes (2) Syphilis: No Uterine Prolapse: No Musculoskeletal Problems Muscular Dystrophy: No Myasthenia Gravis: No Marfan's Syndrome: No Bone Cancer: No Arthritis: Yes Rheumatoid Arthritis: No Osteoporosis: No Degenerative Disk Disease: No Gout: No Scoliosis: No Carpal Tunnel Syndrome: No Fibromyalgia: No Fractures: No Degenerative Joint Disease: No Osteomyelitis: No Poliovirus: No Head,Eye,Nose,Throat Problems Cataracts: No Glaucoma: No Blind: No Retinal Detachment: No Macular Degeneration: No Chronic Ear Infections: No Deafness: No Eye Prosthesis: No Endocrine Problems Diabetes Mellitus Type 1: No Diabetes Mellitus Type 2: Yes Hypoglycemia: No García's Syndrome: No Luis Fernando's Disease: No Hyperthyroidism: No Hypothyroidism: No Thyroid Cancer: No Parathyroid Disease: No Pituitary Disease: No Systemic Lupus Erythematosus: No Syndrome of Inappropriate Antidiuretic Hormone: No Adrenal Disease: No Graves' Disease: No Blood Problems Anemia: No Leukemia: No Hemophilia: No Thalassemia: No Sickle Cell Disease: No Clotting Problems: No Psychologic Problems Schizophrenia: No Recreational Drug Use: No Bipolar Disorder: No Depression: No Anxiety: No Behavior Problems: No Self-Mutilation: No Attention Deficit Disorder: No Attention Deficit Hyperactivity Disorder: No Depression: No Post Traumatic Stress Disorder: No Eating Disorder: No Other Problems Hospitalization: No Autoimmune Disease: No Down Syndrome: No Autism: No Developmental Delay: No Cosmetic Surgery: No Shingles: No Falls: No Blood Transfusions: No Blood Transfusion Reaction: No Anesthesia Reactions: No Organ Transplant: No Chemotherapy: No Radiation Therapy: No Hyperbaric Therapy: No MRSA: No VRSA: No Vancomycin-Resistant Enterococci: No Human Immunodeficiency Virus (HIV): No Chicken Pox: Yes Measles: Yes Mumps: No Rubella ([place] Measles): No Pertussis: No Klebsiella Pneumoniae Carbapenemase Producing Bacteria: No Clostridium Difficile: No Hepatitis A: No Hepatitis B: No Hepatitis C: No Communicable Disease: No Cancer: No Cervical Cancer: No Lung Cancer: No Ovarian Cancer: No Surgical History Angioplasty: No Appendectomy: No Bariatric Surgery: No Breast Surgery: No Cancer Surgery: No Carotid Endarterectomy: No Cholecystectomy: No Colectomy: No Colostomy: No Coronary Artery Bypass Graft: No Valve Replacement: No Herniorrhaphy: No Total Hip Replacement: No Total Knee Replacement: No Hysterectomy: No Pacemaker: No Sinus Surgery: No Splenectomy: No TAHBSO-Total Abdominal Hysterectomy: No Thyroidectomy: No Ureter Stent: No Subjective Visit Visit for: follow up visit, post op #1 and knee (RIGHT) Immunization / Flu Flu Vaccine in the Last 12 Months: No Flu Vaccine Exclusion Criteria: No Exclusion Criteria History of Present Illness Chief complaint: 2 WK R TKA Patient is a 54-year-old female who is status post right total knee replacement 2 weeks ago. She is doing well. She is not moving her knee very much Personal History Red flag PMH: none BMI Counceling provided: Yes Additional comments: WALKER WAS GIVEN FOR SX Pain Pain level (0-10): 9 Pain duration: 1 WEEK Pain location: inside (medial) and anterior Pain quality: aching Pain timing: increases with activity Associated signs & symptoms: none Ambulatory data Ambulatory device: walker Walking distance (minutes): 1 (HOUR) Treatments Number of previous injections: 12 Improvement with previous injections: Yes Number of Physical Therapy sessions: 0 Improvement with PT: No Improvement with NSAIDS: no Review of Systems Review of Systems: All systems negative unless otherwise noted in HPI.
[2025-11-12 11:00] VITALS: BP 123/71; PULSE 109; RESP 19; TEMP 36.3; O2SAT 97; BMI 38.1
== END 2025-11-12 11:19 | disposition home or self-care (01) ==
LOC: HODSRG 10:44
PROVIDERS: PCP Physician Assistant Medical; Referring Provider Physician Assistant Medical; Supervising Provider Orthopaedic Surgery Adult Reconstructive Orthopaedic Surgery; Visit Provider Orthopaedic Surgery Adult Reconstructive Orthopaedic Surgery
DX: M17.0 Bilateral primary osteoarthritis of knee (principal); Z96.651 Presence of right artificial knee joint
CPT/HCPCS: 99213; G0463